=== PATIENT | male | born 1960 | race Caucasian/White ===

== ENCOUNTER 2017-06-29 00:19 | Emergency (ER) | payer OTHER, SELFPAY ==
[2017-06-29 00:20] VITALS: BP 141/77; PULSE 67; RESP 16; TEMP 36.5; O2SAT 98; BMI 37.3
--- NOTE | 2017-06-29 00:43 | EKG12_ITS ---
Test Reason : CP Blood Pressure : / mmHG Vent. Rate : 062 BPM Atrial Rate : 062 BPM P-R Int : 136 ms QRS Dur : 090 ms QT Int : 418 ms P-R-T Axes : -09 -08 -03 degrees QTc Int : 424 ms Normal sinus rhythm Normal ECG Confirmed by ANNA ROSAS, ARI ([id number]), international editorial producer ASHA GRULLON ([id number]) on 07/01/2017 2:12:22 PM Referred By: JUAN CARLOS Confirmed By:ARI CASTILLO MD
[2017-06-29 00:44] VITALS: O2SAT 98
[2017-06-29 00:49] LABS: Basophil# 0.02 X10^3/uL; Basophil% 0.4 % (0-1); Eosinophil# 0.19 X10^3/uL; Eosinophils% 3.6 % (0-5); Hematocrit 42.4 % (40-54); Lymphocyte % 49.7 % (19-41); Mean Corpuscular Hgb 29.3 pg (27.0-32.0); Mean Corpuscular Volume 88.7 fL (80-94); Mean Platelet Vol. 10.4 fl (6.2-12.0); Monocyte# 0.41 X10^3/uL; Monocyte% 7.8 % (0-10); Neutrophil # 1.99 X10^3/uL (2.7-7.7); Neutrophil % 38.1 % (47-70); Platelet Count 203 K/mm3 (150-450); RBC Distribution Width CV 13.2 % (11.6-14.6); RBC Distribution Width SD 42.3 fl (35.1-43.9); Red Blood Count 4.78 M/mm3 (4.6-6.2); White Blood Count 5.2 K/mm3 (4.4-11.0)
--- NOTE | 2017-06-29 00:49 | ED.DCSUM_ITS ---
History of Present Illness Chief Complaint: Chest Pain Informant: Patient Onset: Today, Hours - 1 Context: Sudden Onset Timing: Intermittent - x1, Lasts - 5 min Quality: ache Location: LUQ/epigastrium Current Severity: Gone Maximum Severity: Moderate Worsened by: nothing Relieved by: nothing Associated Symptoms: numbness both hands. sweaty/clammy. lightheaded. Narrative: Sx started after getting out of bed to use the bathroom. Hx of an AL 20 yrs ago. Has 3 stents. Last cardiac stress test awhile ago. ASA 324mg po en route by EMS. Took 3 Ex-Lax just prior to going to bed due to 3-day hx of constipation. Prior similar symptoms: No - Past Medical History (1) CAD (coronary artery disease) Status: Chronic Past Medical History - Allergies and Home Meds Allergies/Adverse Reactions: Allergies clarithromycin [From Biaxin] Allergy (Verified 06/29/17 00:20) Unknown Home Medications: Home Medications Medication Instructions Recorded Aspirin E.C. [Ecotrin] 81 mg PO DAILY@0800 06/29/17 Cholecalciferol (Vitamin D3) 2,000 unit PO DAILY 06/29/17 [Vitamin D3] Citalopram [Celexa] 20 mg PO DAILY 06/29/17 Clopidogrel Bisulfate [Clopidogrel] 75 mg PO DAILY 06/29/17 Cyanocobalamin [Vitamin B12] 1,000 mcg PO DAILY@0800 06/29/17 Esomeprazole Magnesium [Nexium 20 mg PO DAILY 06/29/17 24Hr] Fish Oil/Dha/Epa [Fish Oil 1,200 1 each PO DAILY 06/29/17 mg Fish Oil] Gemfibrozil [Lopid] 600 mg PO DAILY 06/29/17 Levaquin tablet 06/29/17 Metoprolol Tartrate [Lopressor 25 mg PO DAILY 06/29/17 (Beta Meli)] Oxycodone HCl/Acetaminophen 1 tab PO TID PRN 06/29/17 [Percocet 7.5-325 mg Tablet] Ramipril 1.25 mg PO DAILY 06/29/17 Primary Care Physician: Tre Pearson DO [Primary Care Provider] - 3-5 Days Doctors: George - Cardiology Lives: Alone - due to in SNF Smoking Status: Former smoker Drugs: None Review of Systems All systems negative except as indicated Cardiovascular: Reports: Chest pain. Denies: Palpitations Respiratory: Reports: Cough - recent, improving. Denies: Dyspnea Gastrointestinal: Reports: Abdominal pain, Constipation. Denies: Nausea, Vomiting Neurological: Reports: Numbness, - - lightheadedness w/o near-syncope Physical Exam Vital Signs/Narrative: Vital Signs Temp Pulse Resp BP Pulse Ox 06/29/17 00:20 97.7 F L 67 16 141/77 H 98 Inital Vital Signs reviewed: Yes General: Well nourished, Well developed Head: Normocephalic, Atraumatic Eyes: Perrl, EOMI ENT: Moist mucous membranes, No rhinorrhea Neck: Supple, Nontender Cardiovascular: Regular rate, Regular rhythm, No murmurs Respiratory: No distress, CTA bilaterally, Chest nontender Abdomen: Soft, Nontender, Nondistended, Normal bowel sounds Back: Nontender, Normal Inspection Extremities: Nontender - no calf tenderness., No edema Skin: Normal color, No rash Neurological: Alert, Oriented x3, Cranial nerves II-XII grossly intact, Normal Strength, Normal Sensation Psychological: Normal affect Diagnostic/Tx/Re-eval Chest X-Ray - ED: 2 View, Read by ED Physician, Read by Radiologist, No Acute Disease Impressions Chest X-Ray 06/29/17 00:50 IMPRESSION: Normal x-ray examination of the chest. Electronically Signed: Rosendo Hallman MD at 1:59 EDT Tel , Service support , 06/29/17 00:50 Chest PA and Lateral [RAD] Stat Laboratory Results 06/29/17 06/29/17 Range/Units 00:24 00:24 WBC 5.2 (4.4-11.0) K/mm3 RBC 4.78 (4.6-6.2) M/mm3 Hgb 14.0 (13.0-16.5) g/dl Hct 42.4 (40-54) % MCV 88.7 (80-94) fL MCH 29.3 (27.0-32.0) pg MCHC 33.0 (32-36) g/gl RDW 13.2 (11.6-14.6) % RDW Differential 42.3 (35.1-43.9) fl Plt Count 203 (150-450) K/mm3 MPV 10.4 (6.2-12.0) fl Immature Gran % (Auto) 0.400 (0.0-0.9) % Neut % (Auto) 38.1 L (47-70) % Lymph % (Auto) 49.7 H (19-41) % [place] % (Auto) 7.8 (0-10) % Eos % (Auto) 3.6 (0-5) % Baso % (Auto) 0.4 (0-1) % Absolute Neuts (auto) 2.0 (2.0-7.7) X10^3/uL Absolute Lymphs (auto) 2.60 (0.83-4.51) X10^3/ul Total Counted Not Reportable Sodium 143 (136-145) mmol/L Potassium 4.3 (3.5-5.1) mmol/L Chloride 106 (98-107) mmol/L Carbon Dioxide 31.0 (21.0-32.0) mmol/L Anion Gap 6 (5-15) BUN 34 H (7-18) mg/dL Creatinine 1.17 (0.70-1.30) mg/dL Estim Creat Clear Calc 71.06 ml/min Est GFR (MDRD) Af Amer 82 (>60) mL/min Est GFR (MDRD) Non-Af 68 (>60) mL/min BUN/Creatinine Ratio 29.1 H (10-20) RATIO Glucose 147 H (74-106) mg/dL Calcium 8.6 (8.5-10.1) mg/dL Troponin I < 0.02 (<0.06) ng/mL - Rhythm Strip Rhythm Strip: Sinus Rhythm Rate: 65 Ectopy: None - EKG 1 Interpretation: Sinus Rhythm - nml axis, intervals, T-waves, No Acute Injury Pattern Prior: Unchanged - 04/03/2007 - Medical Decision Making LANCE risk score - 2 (prior CAD, ASA use daily) HEART score - 3 (risk, age) EKG normal, labs initially normal with negative troponin. My suspicion is that this was not cardiogenic, especially since it only lasted for several minutes. He has had no symptoms in the ED and is resting comfortably. Plan is for a 3 hour repeat troponin, and discharge home with close outpatient follow-up if negative. Patient is comfortable with that plan. Repeat 3 hour troponin is negative as well. Patient meets low risk criteria for discharge home, he is comfortable with this plan and is still asymptomatic. Encouraged to follow-up with his doctor after the weekend. ED Disposition - Plan for ED Patient: Disposition: Home or Assisted Living Chief Complaint: Chest Pain Diagnosis: Chest pain, unspecified Instructions: ED Chest Pain Atypical Unkn Cause Referrals: Tre Pearson DO [Primary Care Provider] - 3-5 Days
--- NOTE | 2017-06-29 00:50 | RAD_ITS ---
STUDY: X-RAY CHEST REASON FOR EXAM: Male, 56 years old. Chest pain TECHNIQUE: Frontal and lateral views of the chest. COMPARISON: 04/02/2007 FINDINGS: The lungs are clear and expanded. There is no demonstrated pleural abnormality. Normal size heart. Normal mediastinum and jermaine. Normal visualized pulmonary arteries. Normal visualized aortic arch and descending thoracic aorta. Normal visualized thoracic spine. Normal visualized ribs, clavicles, and shoulders. There is no demonstrated abnormality of the visualized soft tissue structures of the upper abdomen. RAD/Chest PA and Lateral IMPRESSION: Normal x-ray examination of the chest. Electronically Signed: Rosendo Hallman MD at 1:59 EDT Tel , Service support ,
[2017-06-29 00:54] LABS: POSITIVE COUNT NO; POSITIVE DIFFERENTIAL NO; POSITIVE MORPHOLOGY NO
[2017-06-29 01:02] LABS: Anion Gap 6 (5-15); BUN 34 mg/dL (7-18); BUN/Creat Ratio 29.1 RATIO (10-20); Calcium,Total 8.6 mg/dL (8.5-10.1); Chloride 106 mmol/L (98-107); Creatinine, Serum 1.17 mg/dL (0.70-1.30); EST Glomerular Filtration Rate 68 mL/min (>60); Est Glom Filt Rate - Afr Amer 82 mL/min (>60); Estimated Creatinine Clearance 71.06 ml/min; Glucose 147 mg/dL (74-106); Potassium 4.3 mmol/L (3.5-5.1); Sodium Level 143 mmol/L (136-145)
[2017-06-29] MEDS: 0.9% Normal Saline 1,000 ML 15 ML IV (01:04)
[2017-06-29 01:06] VITALS: BP 140/86; PULSE 59; RESP 17; O2SAT 98
[2017-06-29 02:23] VITALS: BP 131/78; PULSE 58; RESP 17; O2SAT 97
[2017-06-29 04:06] VITALS: BP 131/78; PULSE 59; RESP 15; O2SAT 97
[2017-06-29 04:14] VITALS: BP 137/78; PULSE 60; RESP 18; O2SAT 98
== END 2017-06-29 04:15 | disposition home or self-care (01) ==
PROVIDERS: Emergency Provider Emergency Medicine; Family Provider Family Medicine; PCP Family Medicine
DX: R07.9 Chest pain, unspecified (principal); I25.2 Old myocardial infarction; I25.10 Atherosclerotic heart disease of native coronary artery without angina pectoris; Z95.5 Presence of coronary angioplasty implant and graft; Z87.891 Personal history of nicotine dependence; Z79.82 Long term (current) use of aspirin; Z79.891 Long term (current) use of opiate analgesic; Z79.899 Other long term (current) drug therapy
CPT/HCPCS: 71046; 80048; 84484; 85025; 93005; 99284; A4216

== ENCOUNTER → 2017-07-05 08:32 | Outpatient (CLI) | payer OTHER, SELFPAY ==
--- NOTE | 2017-07-05 08:34 | RAD_ITS ---
STUDY: AIR-CONTRAST UPPER GI SERIES. REASON FOR EXAM: Male, 56 years old. History of gastroesophageal reflux. FLUOROSCOPY TIME (if supplied): (0:45) minutes/seconds TECHNIQUE: The patient ingested barium. Multiple images of esophagus, stomach and duodenum were obtained. COMPARISON: None. FINDINGS: There is no evidence of esophageal obstruction. Small sliding hiatal hernia with gastroesophageal reflux. The remainder of the stomach and duodenum is unremarkable. IMPRESSION: Small sliding hiatal hernia with gastroesophageal reflux. Electronically Signed: Bucky Valenzuela MD at 15:21 EDT Tel [phone], Service support , STUDY: X-RAY - ESOPHAGUS (BARIUM SWALLOW) WITH FLUOROSCOPY REASON FOR EXAM: Male, 56 years old. Gastroesophageal reflux disease. TECHNIQUE: 16 view(s) of the esophagus were obtained following swallowing of barium. FLUOROSCOPY TIME (if supplied): (0:45) minutes/seconds COMPARISON: None. FINDINGS: There is no demonstrated esophageal foreign body. There is no demonstrated stricture or mucosal abnormality. There is a small hiatal hernia of the fundus of the stomach. There is evidence of gastroesophageal reflux. Normal visualized aortic arch and descending thoracic aorta. Normal visualized pulmonary parenchyma. Normal visualized osseous structures of the thorax. RAD/Upper GI w/BA Swallow IMPRESSION: Small sliding hiatal hernia with gastroesophageal reflux. Electronically Signed: Bucky Valenzuela MD at 15:22 EDT Tel [phone], Service support ,
== END ==
PROVIDERS: Family Provider Family Medicine; PCP Family Medicine; Visit Provider Surgery
DX: K21.9 Gastro-esophageal reflux disease without esophagitis (principal)
CPT/HCPCS: 74246

== ENCOUNTER 2017-07-19 09:11 | Day surgery (SDC) | payer OTHER, SELFPAY ==
--- NOTE | 2017-07-19 | IMM_PTH ---
PATIENT: TALYA SANZ LOC: [facility] U#:[id number] AGE/SX: 56/M ROOM: RE07/19/[address]: Dr. Chong Casiano MD : 1960 BED: DIS: 07/19/2017 SPEC #: [id number] RECD: 07/23/17 11:21 STATUS: JESSICA AMANDA #: [id number] MANUEL: 07/19/17 00:[address]: Chong Casiano DEPT: IMMUNOHISTOCHEMISTRY RECD BY: Manuela Jacinto ENTERED: 07/23/17 11:21 SP TYPE: IMMUNO OTHR DR: Dr. Tre Pearson DO Tissues: B - Stomach, NOS Procedures: H Pylori (initial) PHYSICIAN & INSTITUTION [place] [id number] SPECIMEN INFORMATION: Tissue Source: B ? Antrum biopsy Clinical Info: Screening, GERD, esophagitis Specimen Number: [id number] CPT code: 22582 METHODOLOGY: Deparaffinized sections of prefer/formalin-fixed tissue or PAP/DQ stained slides are incubated with monoclonal/polyclonal antibodies/oligonucleotide probes. Localization is made via biotin free immunoperoxidase method. Appropriate controls are performed and reacted as expected. Results on target cell population are indicated in the following table: RESULTS: ANTIBODY / CLONE RESULT Block B H Pylori (polyclonal) negative These tests were developed and their performance characteristics determined by [facility]. They may not have been cleared or approved by the U.S. Food and Drug Administration. The FDA has determined that such clearance or approval is not necessary. INTERPRETATION: B. Antrum, biopsy: Negative for Helicobacter pylori organisms. SJ:serge 07/24/17
--- NOTE | 2017-07-19 | COLBX_PTH ---
PATIENT: TALYA SANZ LOC: [facility] U#:[id number] AGE/SX: 56/M ROOM: RE07/19/[address]: Dr. Chong Casiano MD : 1960 BED: DIS: 07/19/2017 SPEC #: [id number] RECD: 07/19/17 13:25 STATUS: JESSICA AMANDA #: [id number] MANUEL: 07/19/17 00:[address]: Chong Casiano DEPT: SURGICAL PATHOLOGY RECD BY: Juvenal Rincon ENTERED: 07/19/17 13:26 SP TYPE: COLON BX OTHR DR: Dr. Tre Pearson DO Tissues: A - Sigmoid colon biopsy B - Gastric mucous membrane C - Gastric mucous membrane D - Esophageal mucous membrane Procedures: Special Stain Group II Surgery Specimen Level IV Alcian Blue/PAS (control) HEADER OPERATION: Colonoscopy with polypectomy; EGD with biopsies PRE-OP DIAGNOSIS: Screening; GERD, esophagitis TISSUE SUBMITTED: A - Distal sigmoid polyp, B ? Antrum biopsy for H. pylori and path, C ? Fundic polyp, D ? Distal esophagus biopsy MICROSCOPIC DIAGNOSIS A. Distal sigmoid polyp, biopsy: Hyperplastic polyp. B. Antrum, biopsy: Mild gastritis. See microscopic description and comment. C. Fundic polyp, biopsy: Consistent with fundic gland polyp. D. Distal esophagus, biopsy: Fragments of gastroesophageal mucosa with intestinal metaplasia (goblet cell metaplasia) consistent with Arreola?s esophagus. Focal ulceration, acute and chronic inflammation. Negative for dysplasia. See comment. SJ:serge 07/23/17 COMMENT B. The results of immunohistochemistry for Helicobacter pylori will be reported separately ([id number]). D. Alcian blue/PAS stain with matched control is used in the evaluation of the specimen. MICROSCOPIC DESCRIPTION Slides are reviewed. B. The specimen shows fragments of gastric mucosa with chronic inflammatory cell infiltrates in the lamina propria consisting of lymphocytes and plasma cells, consistent with mild chronic gastritis. GROSS DESCRIPTION A - Received in fixative is one container labeled with the patient's name and designated distal sigmoid polyp. The specimen consists of a piece of deleon-pink polyp measuring 0.6 x 0.5 x 0.2 cm. The specimen is totally submitted in one cassette. B - Received in fixative is one container labeled with the patient's name and designated antrum biopsy for H. pylori and path. The specimen consists of one irregular fragment of light deleon soft tissue that measures 0.5 x 0.2 x 0.1 cm. The specimen is totally submitted in one cassette. C - Received in fixative is one container labeled with the patient's name and designated fundic polyp biopsy. The specimen consists of one irregular fragment of light deleon soft tissue that measures 0.2 x 0.2 x 0.1 cm. The specimen is totally submitted in one cassette. D - Received in fixative is one container labeled with the patient's name and designated distal esophagus biopsy. The specimen consists of multiple irregular fragments of light deleon soft tissue that in aggregate measure 2 x 0.8 x 0.1 cm. The specimen is totally submitted in one cassette. / SJ:rg 07/19/17 TC:2 [facility]: [id number] x4, [id number]
[2017-07-19 09:34] VITALS: BP 136/81; PULSE 68; RESP 18; TEMP 36.8; O2SAT 99; BMI 37.0
--- NOTE | 2017-07-19 11:14 | PCM.OPRPT ---
Problem List (1) Screening for intestinal cancer Status: Acute (2) GERD with esophagitis Status: Acute Report of Operation Date of Procedure: 07/19/17 Pre-Operative Diagnosis: Epigastric pain, gastroesophageal reflux disease, need for screening colonoscopy Post-Operative Diagnosis: Mild diffuse gastritis, gastric fundic polyps, small hiatal hernia with 4 cm long segment of Arreola's esophagus. Scattered pancolonic diverticulosis with sigmoid diverticulosis. Sessile polyp of the distal sigmoid. Grade 2 internal hemorrhoids Surgery/Procedure Performed:: Esophagogastroduodenoscopy with cold forcep antral biopsy and gastric polyp biopsies and distal esophageal biopsies. Colonoscopy with hot snare distal sigmoid polypectomy Description of Surgical Findings:: Timeout and informed consent was obtained. 56-year-old gentleman was taken to the screw suite. His oropharynx anesthetized with Topex. He was placed in a left loud skin position. Monitored anesthesia care was provided. Under direct visitation gastroscope inserted and soft ligament. The proximal mid distal esophagus noted. The EG junction at the site of Arreola's was approximately at 34 cm with the diaphragm at approximately 38 cm making a 4 cm length of Arreola's. Scope was advanced in the stomach the antrum had diffuse areas of erythema consistent with gastritis scope was advanced through the pylorus the first and second portion of the duodenum inspected this was not remarkable scope was withdrawn back in the stomach retroflexed the EG junction and cardia inspected a hiatal hernia noted. There is no active bleeding. The scope was placed back in antegrade viewing position. Antral biopsy was obtained. There were scattered gastric fundic polyps a public health representative sample with cold forceps was obtained as well. Excess fluid and air was aspirated free. The scope was withdrawn to the distal esophagus where multiple cold forcep biopsies are obtained of the distal esophagus at the site of clinical Arreola's over a 4 cm length. Hemostasis was intact. Excess fluid and air was aspirated free. The scope was withdrawn without additional abnormality. Digital rectal exam performed. Normal anal tone. 2+ smooth prostate. Flexible colonoscope inserted the rectum advanced readily throughout the colon. The cecum ileocecal valve area was nicely achieved. Bowel prep was good. The scope was carefully withdrawn from the ascending transverse descending and sigmoid colon. Minimal scattered diverticulosis was identified. More significant diverticulosis of the sigmoid colon noted. There is a sessile 1.2 cm polyp of the distal sigmoid colon at approximately 20 cm. Photograph was obtained. A hot snare was used to resect and retrieved. A hemostatic clip was placed.. The scope withdrawn to the rectum and retroflexed. The anorectal verge inspected. Impression Gastritis, gastric fundic polyps, small to moderate hiatal hernia with clinical findings consistent with a 4 cm length of Arreola's esophagus. These findings however do not seem to correlate with the severity of the patient's epigastric pain particularly as he is on a proton pump inhibitor. Colonoscopy demonstrates pancolonic scattered diverticulosis with more concentrated sigmoid diverticulosis. Sessile benign-appearing polyp in the distal sigmoid with pathology pending and hemostatic clip placed. The patient will be notified of pathology results as they become available. Previous colonoscopy was 12 years ago. Pending the pathology recommendations will be for follow-up colonoscopy likely in 3-5 years. It is not clear to me that the etiology to the patient's epigastric pain has been determined on this examination. Pending the pathology if the patient has persistent symptoms might consider CT scan of the abdomen and pelvis. For the patient's reflux and Arreola's I will again encourage him to pursue a weight loss program to potentially allow for a more aggressive surgical treatment option in the future name be repairing his hiatal hernia and performing a surgical reflux procedure. Cc: Dr. Tre Pearson Upper endoscopy started at 1047. It was completed at 1056. The colonoscopy started at 1059. The cecum was reached at 1102.2. The procedure was completed at 1109. Chong Casiano M.D., F.A.C.S. Type of Anesthesia:: MAC
[2017-07-19 11:15] VITALS: BP 111/74; BP 136/81; PULSE 75; RESP 14; TEMP 36.4; O2SAT 93
[2017-07-19 11:20] VITALS: BP 105/64; BP 136/81; PULSE 67; RESP 16; O2SAT 93
[2017-07-19 11:26] VITALS: BP 134/84; BP 136/81; PULSE 64; RESP 16; O2SAT 96
[2017-07-19 11:30] VITALS: BP 123/86; BP 136/81; PULSE 61; RESP 16; TEMP 36.8; O2SAT 95
[2017-07-19 12:08] VITALS: BP 136/81
== END 2017-07-19 12:14 | disposition home or self-care (01) ==
LOC: EN 09:11 → AC 09:12
PROVIDERS: Family Provider Family Medicine; PCP Family Medicine; Visit Provider Surgery
PROC: 0DJD8ZZ Inspection of Lower Intestinal Tract, Via Natural or Artificial Opening Endoscopic (ICD-10-PCS; CPT 45378; principal; 2017-07-19 10:10)
DX: Z12.11 Encounter for screening for malignant neoplasm of colon (principal); K21.0 Gastro-esophageal reflux disease with esophagitis; K29.70 Gastritis, unspecified, without bleeding; K31.7 Polyp of stomach and duodenum; K63.5 Polyp of colon; K22.70 Barrett's esophagus without dysplasia; K44.9 Diaphragmatic hernia without obstruction or gangrene; K57.30 Diverticulosis of large intestine without perforation or abscess without bleeding; K64.1 Second degree hemorrhoids; F41.9 Anxiety disorder, unspecified; F32.9 Major depressive disorder, single episode, unspecified; I25.10 Atherosclerotic heart disease of native coronary artery without angina pectoris; I25.2 Old myocardial infarction; M19.90 Unspecified osteoarthritis, unspecified site; E78.00 Pure hypercholesterolemia, unspecified; G47.30 Sleep apnea, unspecified; E66.9 Obesity, unspecified; Z68.38 Body mass index [BMI] 38.0-38.9, adult; Z87.891 Personal history of nicotine dependence; Z79.82 Long term (current) use of aspirin; Z79.02 Long term (current) use of antithrombotics/antiplatelets; Z79.891 Long term (current) use of opiate analgesic; Z79.899 Other long term (current) drug therapy; Z95.5 Presence of coronary angioplasty implant and graft
CPT/HCPCS: 43239; 45380; 88305; 88313; 88342; J7120

== ENCOUNTER → 2017-10-23 07:06 | Outpatient (CLI) | payer OTHER, SELFPAY ==
[2017-10-23 10:46] LABS: AST(SGOT) 27 U/L (15-37); Alanine Aminotransfer ALT/SGPT 49 U/L (16-61); Alkaline Phosphatase 74 U/L (45-117); Bilirubin, Direct 0.05 mg/dL (0.00-0.30); Cholesterol 181 mg/dL (200); Globulin 3.3 g/dL (2.2-4.2); High Density Lipoprotein 25 mg/dL; Protein, Total 7.3 g/dL (6.4-8.2); Triglycerides 351 mg/dL; Very Low Density Lipoprotein 70 mg/dL (5-40)
== END ==
PROVIDERS: Family Provider Family Medicine; PCP Family Medicine; Visit Provider Physician Assistant Medical
DX: E78.5 Hyperlipidemia, unspecified (principal); Z79.899 Other long term (current) drug therapy
CPT/HCPCS: 36415; 80061; 80076

== ENCOUNTER → 2017-11-13 06:19 | Outpatient (CLI) | payer OTHER, SELFPAY ==
--- NOTE | 2017-11-13 10:37 | STRESSREP ---
Stress Test Report Exercise myocardial perfusion stress test. 57-year-old man with a history of coronary artery disease status post angioplasty and stenting of the first obtuse marginal branch and the left anterior descending artery. Stress protocol: Resting EKG demonstrates normal sinus rhythm with a rate of 67 beats minute normal intervals and noted resting blood pressures 142/98 mmHg. The patient exercised according to regular Haja protocol for total duration of 6 minutes the maximum heart rate attained was 146 bpm which was 90% of maximum predicted heart rate the maximum workload was 7 metabolic equivalents. Patient maintained sinus rhythm throughout the recording with occasional premature ventricular complexes. At rest there were no ST or T-wave changes noted suggest ischemia peak exercise upsloping ST changes only were noted with no meet the criteria for ischemia. The resting blood pressure is 142/98 with a peak blood pressure 180/100 mmHg pressure product was 22,600. No chest pain was noted the patient was noted to be short of breath and had hip discomfort. Myocardial perfusion protocol. 14.8 mCi of technetium 99m sestamibi was injected at rest. The patient exercised according to regular Haja protocol for 6 minutes attaining 7 metastases at peak exercise 44.6 mCi of technetium 99m sestamibi was injected stress images were obtained stress and rest images were reconstructed and compared in the short axis vertical long horizontal long axis. Fusion SPECT analysis. Review of the images demonstrate normal uptake of tracer noted in the anterior wall inferior wall and septum. There is a small portion of the apex on the stress images with mild perfusion defect as well as a medium size zone noted in the mid lateral wall. The resting images demonstrate mild improvement in the apex as well as a small defect noted in the mid lateral wall. The above is suggestive of ischemia in the mid lateral distribution and cannot exclude small apical ischemic zone. A previous mid lateral infarct is also suggested. Gated SPECT analysis: The gated ejection fraction is 56%. Conclusion: Exercise myocardial perfusion stress test with evidence of apical and mid lateral ischemia at a moderate workload. Mild functional aerobic impairment. Preserved ejection fraction.
== END ==
PROVIDERS: Family Provider Family Medicine; PCP Family Medicine; Visit Provider Internal Medicine Cardiovascular Disease
DX: I25.10 Atherosclerotic heart disease of native coronary artery without angina pectoris (principal); Z95.5 Presence of coronary angioplasty implant and graft
CPT/HCPCS: 78452; 93017; A9500; A4216

== ENCOUNTER → 2017-11-14 14:45 | Outpatient (CLI) | payer OTHER, SELFPAY ==
[2017-11-14 15:28] LABS: Absolute Lymphocyte Count 1.55 X10^3/ul (0.83-4.51); Absolute Neutrophil Count 2.8 X10^3/uL (2.0-7.7); Basophil# 0.02 X10^3/uL; Basophil% 0.4 % (0-1); Eosinophil# 0.07 X10^3/uL; Eosinophils% 1.4 % (0-5); Hematocrit 41.8 % (40-54); Lymphocyte # 1.55 X10^3/ul (4.0); Mean Corp Hgb Conc 33.5 g/gl (32-36); Mean Corpuscular Hgb 29.7 pg (27.0-32.0); Mean Corpuscular Volume 88.7 fL (80-94); Mean Platelet Vol. 10.3 fl (6.2-12.0); Monocyte# 0.44 X10^3/uL; Monocyte% 9.1 % (0-10); Neutrophil # 2.77 X10^3/uL (2.7-7.7); Neutrophil % 57.1 % (47-70); Platelet Count 208 K/mm3 (150-450); RBC Distribution Width CV 12.9 % (11.6-14.6); RBC Distribution Width SD 41.5 fl (35.1-43.9); Red Blood Count 4.71 M/mm3 (4.6-6.2); White Blood Count 4.9 K/mm3 (4.4-11.0)
[2017-11-14 15:31] LABS: POSITIVE COUNT NO; POSITIVE DIFFERENTIAL NO; POSITIVE MORPHOLOGY NO
[2017-11-14 15:44] LABS: International Normalized Ratio 0.9; Prothrombin Time (Protime)PT. 12.3 SECONDS (11.7-14.9)
[2017-11-14 15:45] LABS: Partial Thromboplast Time 26.3 Seconds (24.1-36.2)
[2017-11-14 16:01] LABS: Anion Gap 10 (5-15); BUN 31 mg/dL (7-18); Calcium,Total 8.8 mg/dL (8.5-10.1); Chloride 106 mmol/L (98-107); Creatinine, Serum 1.15 mg/dL (0.70-1.30); EST Glomerular Filtration Rate 69 mL/min (>60); Est Glom Filt Rate - Afr Amer 84 mL/min (>60); Glucose 129 mg/dL (74-106); Potassium 4.1 mmol/L (3.5-5.1); Sodium Level 141 mmol/L (136-145)
== END ==
PROVIDERS: Family Provider Family Medicine; PCP Family Medicine; Visit Provider Internal Medicine Cardiovascular Disease
DX: E78.5 Hyperlipidemia, unspecified (principal); I10 Essential (primary) hypertension; I25.10 Atherosclerotic heart disease of native coronary artery without angina pectoris; R94.39 Abnormal result of other cardiovascular function study; Z95.5 Presence of coronary angioplasty implant and graft
CPT/HCPCS: 36415; 80048; 85025; 85610; 85730

== ENCOUNTER 2017-11-21 07:01 | Day surgery (SDC) | payer OTHER, SELFPAY ==
[2017-11-20 08:30] VITALS: BMI 39.7
--- NOTE | 2017-11-21 08:40 | CL.D_ITS ---
Patient Name: TALYA SANZ Study Date: 11/21/2017 Performing: Ej Vazquez MD Ht: 70.07 inches 178 cm : 1960 Wt: 277.78 lbs 126 kg Age: 57 Gender: male BSA: 2.4 PROCEDURE(S) PERFORMED DQ35-LOM/COR/LV CLINICAL PROFILE AND INDICATIONS Indications: Suspected CAD Heart Failure: None Stress/Imaging Stress Test w/SPECT MPI: Yes Result: Positive Intermediate RiskStress Test with SP ECT MPI: Positive Intermediate Risk CONCLUSIONS Coronary artery disease noted with previously placed LAD stents patent with mild to moderate in-stent stenosis, and an ostial obtuse marginal branch stenosis noted jailed by stent previously noted. RECOMMENDATIONS We will continue medical therapy for now and aggressive blood pressure treatment and if fails or symp tomatic would bring back to treat LAD. DESCRIPTION OF PROCEDURE The patient arrived to the procedure lab. The risks and benefits of the procedure as well as a full d escription of our services here and current unavailability of surgical backup were fully explained to the patient and/or their significant other prior to the catheterization. The Timeout was completed, verifying the correct patient and procedure. The patient's procedural site was prepped and draped in the usual fashion. Local anesthetic was given subcutaneously to right groin region with Lidocaine 2%. Using a modified Seldinger technique, arterial access was obtained via the right femoral artery, a 5 Fr sheath was inserted. Left Coronary Artery selective angiography was performed in multiple views u sing a 5 Fr. JL4 catheter. Right Coronary Artery selective angiography was then performed in multiple views using a 5 Fr. 3DRC (Levi) catheter. Left Ventriculography was performed in WAGNER projection using a 5 Fr. Pigtail catheter. LV to AO pullback pressures were then recorded. Right iliac selective angiography was then performed in single view to check for possible closure device usage.The arteria l sheath was pulled and a Mynx closure device was deployed for hemostasis CORONARY ANGIOGRAPHY DOMINANCE: Left Dominant LEFT HEART ASSESSMENT Left Ventricular Ejection Fraction: by LV Gram 55 % Normal Left Ventricular systolic function LEFT MAIN: Angiographically normal LEFT ANTERIOR DECENDING ARTERY: PROX LAD: Previously placed stent is patent MID LAD: Previously placed stent has an instent 40 % restenosis DISTAL LAD: Mild luminal irregularities CIRCUMFLEX ARTERY: MID CIRC: Previously placed stent is patent OM 1: Ostial - 70 % Stenosis, Ostial - Has a stent going across the lesion. RIGHT CORONARY ARTERY: Non-obstructive COMPLICATIONS No Complications PROCEDURE MEDICATIONS Versed 1 mg IV Versed 1 mg IV Oxygen: 2 L/min via nasal cannula SUMMARY OF HEMODYNAMIC DATA Time AIR REST ECG 07:29:09 AO 137/85 (106) SA 08:06:53 LV 142/15, 32 08:16:29 LV 135/13, 18 08:16:35 LV 147/4, 25 08:17:52 LV 142/4, 25 08:17:59 LVp 138/3, 23 08:18:04 AOp 144/79 (104) 08:18:09 Signed By Ej Vazquez MD On 11/21/2017 08:39:15 Ej Vazquez MD
== END 2017-11-21 11:10 | disposition home or self-care (01) ==
LOC: CLSP 07:03
PROVIDERS: Family Provider Family Medicine; PCP Family Medicine; Referring Provider Internal Medicine Cardiovascular Disease; Visit Provider Internal Medicine Cardiovascular Disease
DX: I25.10 Atherosclerotic heart disease of native coronary artery without angina pectoris (principal); I10 Essential (primary) hypertension; Z95.1 Presence of aortocoronary bypass graft; Z79.899 Other long term (current) drug therapy; Z79.82 Long term (current) use of aspirin; E78.00 Pure hypercholesterolemia, unspecified; K21.0 Gastro-esophageal reflux disease with esophagitis; F41.9 Anxiety disorder, unspecified; F32.9 Major depressive disorder, single episode, unspecified; I25.2 Old myocardial infarction; M19.90 Unspecified osteoarthritis, unspecified site; G47.30 Sleep apnea, unspecified; Z87.891 Personal history of nicotine dependence
CPT/HCPCS: 93458; 99152; C1760; J7040; C1769; Q9967

== ENCOUNTER 2018-04-17 17:53 | Emergency (ER) | payer OTHER, SELFPAY ==
[2018-04-17 17:53] VITALS: BP 134/84; PULSE 78; RESP 14; TEMP 36.4; O2SAT 95; BMI 37.7
[2018-04-17 20:14] VITALS: BP 131/78; PULSE 67; RESP 18; O2SAT 96
--- NOTE | 2018-04-17 20:15 | EKG12_ITS ---
Test Reason : Blood Pressure : / mmHG Vent. Rate : 070 BPM Atrial Rate : 070 BPM P-R Int : 130 ms QRS Dur : 092 ms QT Int : 398 ms P-R-T Axes : -05 -04 008 degrees QTc Int : 429 ms Normal sinus rhythm Normal ECG Confirmed by JASMIN ROSAS, TERESA ([id number]), film and video editor NEISHA EMANUEL ([id number]) on 04/21/2018 5:14:27 PM Referred By: VANDANA Confirmed By:TERESA CASTELLANOS MD
--- NOTE | 2018-04-17 20:15 | RAD_ITS ---
STUDY: X-RAY CHEST REASON FOR EXAM: Male, 57 years old. Hypertension TECHNIQUE: PA and lateral COMPARISON: Jun 29 2017 FINDINGS: There is mild prominence of interstitial markings in the lower lobes.. No focal infiltration.. There is no demonstrated pleural abnormality. Normal size heart. Normal mediastinum and jermaine. Normal visualized pulmonary arteries. Normal visualized aortic arch and descending thoracic aorta. Dorsal spine demonstrates mild spondylosis. Normal visualized ribs, clavicles, and shoulders. There is no demonstrated abnormality of the visualized soft tissue structures of the upper abdomen. No significant change since prior study RAD/Chest PA and Lateral IMPRESSION: Mild chronic bibasilar interstitial changes. No acute disease Electronically Signed: Chris Leon MD at 22:03 EST , Service support ,
[2018-04-17 20:57] LABS: Bacteria 0 SEEN /hpf (None Seen); Mucous, Urine 0 SEEN /hpf (<or=2+); Red Blood Cells-Urine 0 SEEN /hpf (0-5); Squamous Epithelial Cells - UA 0 SEEN /hpf (0-5); White Blood Cells 0 SEEN /hpf (0-5)
[2018-04-17 20:59] LABS: Absolute Lymphocyte Count 2.04 X10^3/ul (0.83-4.51); Absolute Neutrophil Count 2.5 X10^3/uL (2.0-7.7); Basophil# 0.02 X10^3/uL; Basophil% 0.4 % (0-1); Eosinophil# 0.08 X10^3/uL; Eosinophils% 1.6 % (0-5); Hematocrit 42.2 % (40-54); Hemoglobin 14.1 g/dl (13.0-16.5); Lymphocyte # 2.04 X10^3/ul (4.0); Lymphocyte % 40.9 % (19-41); Mean Corp Hgb Conc 33.4 g/gl (32-36); Mean Corpuscular Hgb 29.6 pg (27.0-32.0); Mean Corpuscular Volume 88.7 fL (80-94); Mean Platelet Vol. 10.5 fl (6.2-12.0); Monocyte# 0.39 X10^3/uL; Monocyte% 7.8 % (0-10); Neutrophil # 2.45 X10^3/uL (2.7-7.7); Neutrophil % 49.1 % (47-70); Platelet Count 204 K/mm3 (150-450); RBC Distribution Width CV 13.2 % (11.6-14.6); RBC Distribution Width SD 42.4 fl (35.1-43.9); Red Blood Count 4.76 M/mm3 (4.6-6.2)
[2018-04-17 21:00] LABS: Color, Urine Yellow (Yellow); Glucose, Dipstick Normal (Normal); Ketone-Dipstick Negative (Negative); Leukocyte Esterase-Dipstick Negative /ul (Negative); Nitrite-Dipstick Negative (Negative); Occult Blood-Urine Negative /ul (Negative); Protein-Dipstick Negative (Negative); Urine Bilirubin Dipstick Negative (Negative); Urine Clarity Clear (Clear); Urine Urobilinogen Normal (Normal)
[2018-04-17 21:01] LABS: POSITIVE COUNT NO; POSITIVE DIFFERENTIAL NO; POSITIVE MORPHOLOGY NO
[2018-04-17 21:15] LABS: Anion Gap 9 (5-15); BUN 33 mg/dL (7-18); BUN/Creat Ratio 28.2 RATIO (10-20); Calcium,Total 8.6 mg/dL (8.5-10.1); Chloride 105 mmol/L (98-107); Creatinine, Serum 1.17 mg/dL (0.70-1.30); EST Glomerular Filtration Rate 68 mL/min (>60); Est Glom Filt Rate - Afr Amer 82 mL/min (>60); Estimated Creatinine Clearance 70.19 ml/min; Glucose 141 mg/dL (74-106); Sodium Level 142 mmol/L (136-145)
[2018-04-17 22:35] VITALS: BP 143/91; PULSE 74; RESP 19; O2SAT 96
--- NOTE | 2018-04-17 22:43 | ED.DCSUM_ITS ---
- ER Visit Summary Date of Service: 04/17/18 Chief Complaint: Hypertension History of Present Illness: The patient is a 57 M who presents with elevated blood pressure that has been elevated for the past week. Patient states his blood pressure is 180/115 at home. Patient states he took his blood pressure at 3 PM today and was 200/105. Patient states that he took [id number] prostate medication which he believes caused his blood pressure to go up. Patient also states he thought he might have an infection so he took 3 days worth of Zithromax. Patient states this has not improved his blood pressure. Physical Examination: Vital signs are stable. Patient is afebrile. Patient is in no acute distress. Oral mucosa is pink and moist. Neck is supple. Trachea is midline. There is no JVD noted. Heart was regular rate and rhythm. Lungs are clear and equal bilateral. Abdomen is soft. Bowel sounds are normal. There is no tenderness. There is no guarding noted. Skin is warm dry. Cranial nerves II through XII are intact. There are no focal motor or sensory deficits noted. The remaining physical exam is within normal limits. Test Results: EKG showed normal sinus rhythm with a rate of 70. There are no acute ST or T wave changes. CBC, basic metabolic profile, troponin, and urinalysis were obtained were all normal. Emergency Department Course and Treatment: Patient's blood pressure remained stable here in the emergency department. Patient was directed to follow-up with his primary care physician in 7-10 days. Patient was instructed to keep a log of his blood pressures. Patient understood and was agreeable with the plan. All questions were answered. Disposition: Discharge home Impression: Hypertension This note was generated with [employer] dictation software. It may contain incorrect words, spelling, and punctuation that were not noted in review of the chart prior to signing ED Disposition - Plan for ED Patient: Disposition: Home or Assisted Living Diagnosis: Hypertension Instructions: ED HTN Established Referrals: Tre Pearson DO [Primary Care Provider] -
[2018-04-17 22:57] VITALS: BP 147/94; PULSE 65; RESP 18; O2SAT 98
== END 2018-04-17 22:58 | disposition home or self-care (01) ==
PROVIDERS: Emergency Provider Emergency Medicine; Family Provider Family Medicine; PCP Family Medicine
DX: I10 Essential (primary) hypertension (principal); K21.9 Gastro-esophageal reflux disease without esophagitis; F41.9 Anxiety disorder, unspecified; F32.9 Major depressive disorder, single episode, unspecified; Z79.82 Long term (current) use of aspirin; Z79.891 Long term (current) use of opiate analgesic; Z79.899 Other long term (current) drug therapy
CPT/HCPCS: 71046; 80048; 81001; 84484; 85025; 93005; 99284

== ENCOUNTER → 2018-11-12 | Outpatient (CLI) | payer OTHER, SELFPAY ==
[2018-11-12 09:15] LABS: AST(SGOT) 27 U/L (15-37); Alanine Aminotransfer ALT/SGPT 40 U/L (16-61); Alkaline Phosphatase 71 U/L (45-117); Bilirubin, Direct 0.09 mg/dL (0.00-0.30); Cholesterol 187 mg/dL (200); Globulin 3.1 g/dL (2.2-4.2); High Density Lipoprotein 26 mg/dL; Protein, Total 7.1 g/dL (6.4-8.2); Triglycerides 286 mg/dL; Very Low Density Lipoprotein 57 mg/dL (5-40)
== END | disposition home or self-care (01) ==
LOC: LAB 07:18
PROVIDERS: Family Provider Family Medicine; PCP Family Medicine; Referring Provider Internal Medicine Cardiovascular Disease; Visit Provider Internal Medicine Cardiovascular Disease
DX: E78.5 Hyperlipidemia, unspecified (principal); I10 Essential (primary) hypertension; I25.10 Atherosclerotic heart disease of native coronary artery without angina pectoris; K21.0 Gastro-esophageal reflux disease with esophagitis; Z95.5 Presence of coronary angioplasty implant and graft
CPT/HCPCS: 36415; 80061; 80076

== ENCOUNTER 2019-07-24 10:37 | Emergency (ER) | payer OTHER, SELFPAY ==
[2019-01-06 16:14] VITALS: BMI 38.0
[2019-07-24 10:39] VITALS: BP 177/86; PULSE 74; RESP 18; TEMP 36.4; O2SAT 96; BMI 37.3
--- NOTE | 2019-07-24 11:03 | CT_ITS ---
STUDY: CT ABDOMEN AND PELVIS WITHOUT CONTRAST REASON FOR EXAM: Male, 58 years old. ABD PAIN, NAUSEA, TROUBLE URINATING, CHILLS/FATIGUE/SWEATS X 2 MONTHS RADIATION DOSAGE (If Supplied By Facility): CTDIvol = ( 22.41 ) mGy, DLP = ( 1125.49 ) mGycm TECHNIQUE: Transaxial images were obtained from the dome of the diaphragm to the symphysis pubis without oral contrast, and without intravenous contrast. Sagittal and coronal images were reconstructed. Individualized dose optimization techniques were used for this CT. COMPARISON: None. FINDINGS: Small calcified granuloma in the left lower lobe. The visualized portions of the heart are within normal limits. There is decreased attenuation of the liver consistent with steatosis. Normal gallbladder and extrahepatic biliary system. Normal spleen. Normal pancreas. Normal bilateral adrenal glands. Normal right kidney. Normal left kidney. There is a small hiatal hernia. Normal small intestine. There are multiple colonic diverticula consistent with diverticulosis. The appendix is visualized and appears normal. There is diffuse atherosclerotic calcification of the abdominal aorta, without a demonstrated aneurysm. Normal inferior vena cava. Normal retroperitoneum. There is a 5 cm x 4.2 cm mass in the bladder. The bladder is contracted. A repeat examination with IV contrast and delayed imaging to assess the bladder is recommended. There is a small umbilical hernia containing fat. There are degenerative changes of the visualized lumbar spine. CT/Abdomen/Pelvis without Cont IMPRESSION: Diffuse fatty infiltration of the liver 5 cm x 4.2 cm mass in the bladder as described. A repeat examination following IV contrast and delayed imaging of the bladder is recommended. Electronically Signed: Bucky Valenzuela, at 12:19 EDT , Service support ,
--- NOTE | 2019-07-24 11:03 | EKG12_ITS ---
Test Reason : Blood Pressure : / mmHG Vent. Rate : 066 BPM Atrial Rate : 066 BPM P-R Int : 130 ms QRS Dur : 090 ms QT Int : 418 ms P-R-T Axes : -09 -07 003 degrees QTc Int : 438 ms Normal sinus rhythm with sinus arrhythmia Minimal voltage criteria for LVH, may be normal variant Borderline ECG Confirmed by MASOOD REESE ([id number]), scientific publications editor ASHA GRULLON ([id number]) on 07/27/2019 11:01:24 AM Referred By: TANYA/JUAN CARLOS Confirmed By:MASOOD REESE
--- NOTE | 2019-07-24 11:03 | ED.VIS.GI ---
History of Present Illness Informant: Patient - Abdominal Pain/Flank Pain Onset: Month(s) - 2 months Context: Gradual Onset Timing: Intermittent Quality: Cramping Location: Diffuse Current Severity: Mild Maximum Severity: Moderate Worsened by: Nothing Relieved by: Remaining Still - Nausea/Vomiting/Emesis GI Symptom: Negative for: Nausea, Vomiting - Diarrhea/Melena/Hematochezia GI Symptom: Negative for: Diarrhea, Melena, Hematochezia Associated Symptoms: Negative for: Dysuria, Frequency, Urgency Narrative: 58-year-old male history of coronary artery disease presents to the emergency department with abdominal pain. Patient has been having intermittent abdominal pain for the last 2 months. He states is gotten slightly worse. He is feeling constipated. He states he really has to strain to have a bowel movement and he describes his bowel movements as small marbles. He denies any melena hematochezia or any bright red blood per rectum. He is urinating normally. He has had some nausea but no vomiting. He is not having any difficulty swallowing. He has not had a fever. He is not having back pain. He has been using [id number]-[id number] laxatives and stool softeners with only minimal relief. He does have chronic constipation as he takes chronic narcotics 3 times daily. He also complains of just feeling generally more tired over the last 2 months as well. He feels like he is sweating more at work specifically over the last several weeks. He has not had any chest pain or shortness of breath he has not felt lightheaded or dizzy and states he does not feel like he is losing weight. He denies sick contacts or upper respiratory symptoms. He has had an endoscopy 3 years ago that he states was normal. He is on Prilosec however he is taking it only every other day because he feels it is making his constipation worse. His main concern today is that his brother from esophageal cancer. Prior similar symptoms: No Recent Illness/Hospitalization: No <Cholo Bales - Last Filed: 07/24/19 13:00> <Raymundo Laurent - Last Filed: 07/24/19 13:16> Chief Complaint: Abd Pain Past Medical History Prior records reviewed: Yes Past Medical History: - - Hypertension, chronic pain, chronic constipation, GERD, coronary artery disease, hyperlipidemia Surgical History: angioplasty, appendectomy Lives: With Family Smoking Status: Former smoker Alcohol: Occasional Drugs: None <Cholo Bales - Last Filed: 07/24/19 13:00> <Raymundo Laurent - Last Filed: 07/24/19 13:16> - Allergies and Home Meds Allergies/Adverse Reactions: Allergies clarithromycin [From Biaxin] Allergy (Verified 07/24/19 10:42) Unknown atorvastatin [From Lipitor] Adverse Reaction (Severe, Verified 07/24/19 10:42) myalgias pravastatin Adverse Reaction (Severe, Verified 07/24/19 10:42) Myalgias rosuvastatin [From Crestor] Adverse Reaction (Severe, Verified 07/24/19 10:42) myalgias simvastatin Adverse Reaction (Severe, Verified 07/24/19 10:42) myalgias moxifloxacin [From Avelox] Adverse Reaction (Unknown, Verified 07/24/19 10:42) Unknown Primary Care Physician: Manuel Rojas MD [STAFF PHYSICIAN] - (Call for appointment for urology evaluation) Tre Pearson DO [Primary Care Provider] - Review of Systems All systems negative except as indicated General: Reports: Malaise, Sweats. Denies: Chills, Fever, Weight loss Eyes: Denies: Visual changes - bilaterally, Blurred Vision - bilaterally, Diplopia ENT: Denies: Bilateral ear pain, Rhinorrhea, Sore throat Cardiovascular: Denies: Chest pain, Palpitations, Heart racing Respiratory: Denies: Dyspnea, Cough, Sputum, Dyspnea on exertion, Orthopnea, Paroxysmal nocturnal dyspnea Gastrointestinal: Reports: Abdominal pain, Nausea, Constipation. Denies: Vomiting, Diarrhea, Melena, Hematochezia Genitourinary: Denies: Dysuria, Hematuria, Frequency Musculoskeletal: Denies: Myalgias, Arthralgias, Neck pain, Back pain, Swelling, Extremity Pain Skin: Denies: Rash, Abscess, Abrasions, Wounds Neurological: Denies: Headache, Weakness, Parasthesia, Numbness Endocrine: Denies: Polyuria, Polydipsia Hematologic: Denies: Easy bruising, Easy bleeding <Chool Bales - Last Filed: 07/24/19 13:00> Physical Exam Vital Signs/Narrative: Vital Signs Temp Pulse Resp BP Pulse Ox 07/24/19 10:39 97.5 F L 74 18 177/86 H 96 Inital Vital Signs reviewed: Yes General: Well nourished, Well developed, Obese, No Acute Distress Head: Normocephalic, Atraumatic Eyes: Perrl, EOMI ENT: Moist mucous membranes Neck: Supple, Nontender, No lymphadenopathy, No JVD Cardiovascular: Regular rate, Regular rhythm, No murmurs Respiratory: No distress, CTA bilaterally, Chest nontender Abdomen: Soft, Nondistended, Normal bowel sounds, No masses, Tender, Umbilical hernia, Hernia reducible. Negative for: Guarding, Rebound tenderness Back: Nontender, Normal Inspection. Negative for: CVA tenderness, Spinal tenderness Extremities: Nontender, No edema Skin: Normal color, No rash, No Trauma Neurological: Alert, Oriented x3 Psychological: Normal affect, Normal Mood <Cholo Bales - Last Filed: 07/24/19 13:00> Vital Signs/Narrative: Vital Signs Temp Pulse Resp BP Pulse Ox 07/24/19 11:30 97.5 F L 74 18 177/86 H 96 07/24/19 10:39 97.5 F L 74 18 177/86 H 96 <Raymundo Laurent - Last Filed: 07/24/19 13:16> Diagnostic/Tx/Re-eval CT: Abdomen and Pelvis Impressions Abdomen/Pelvis CT 07/24/19 11:03 IMPRESSION: Diffuse fatty infiltration of the liver 5 cm x 4.2 cm mass in the bladder as described. A repeat examination following IV contrast and delayed imaging of the bladder is recommended. Electronically Signed: Bucky Valenzuela, at 12:19 EDT , Service support , 07/24/19 11:03 Abdomen/Pelvis without Cont [CT] Stat Laboratory Results 07/24/19 07/24/19 07/24/19 11:35 11:35 11:40 WBC 4.1 L RBC 4.87 Hgb 14.2 Hct 42.6 MCV 87.5 MCH 29.2 MCHC 33.3 RDW Std Deviation 38.5 RDW Coeff of Sina 12.1 Plt Count 232 MPV 10.6 Immature Gran % (Auto) 0.500 Neut % (Auto) 56.5 Lymph % (Auto) 31.4 Story % (Auto) 9.6 Eos % (Auto) 1.5 Baso % (Auto) 0.5 Absolute Neuts (auto) 2.3 Absolute Lymphs (auto) 1.28 Nucleated RBC % 0 Sodium 141 Potassium 3.8 Chloride 106 Carbon Dioxide 28.0 Anion Gap 7 BUN 35 H Creatinine 1.10 Estim Creat Clear Calc 73.74 Est GFR (MDRD) Af Amer 88 Est GFR (MDRD) Non-Af 72 BUN/Creatinine Ratio 31.8 H Glucose 120 H Calcium 9.2 Total Bilirubin 0.60 AST 42 H ALT 55 Alkaline Phosphatase 86 Troponin I < 0.015 Total Protein 7.5 Albumin 4.3 Globulin 3.2 Albumin/Globulin Ratio 1.3 Lipase 151 Urine Color Yellow Urine Clarity Clear Urine pH 6.0 Ur Specific [place] 1.015 Urine Protein 15 H Urine Glucose (UA) Normal Urine Ketones 5 H Urine Occult Blood Negative Urine Nitrite Negative Urine Bilirubin Negative Urine Urobilinogen Normal Ur Leukocyte Esterase Negative Urine RBC 0 SEEN Urine WBC 0 SEEN Ur Squamous Epith Cells 0 SEEN Amorphous Sediment 1+ Urine Bacteria 0 SEEN Urine Mucus 0 SEEN - Rhythm Strip Rhythm Strip: Sinus Rhythm Rate: 66 Ectopy: None - EKG Initial EKG Interpretation: Sinus Rhythm, No Acute Injury Pattern Prior: Unchanged - Medical Decision Making Because the patient was given complaining of multiple vague constitutional symptoms a comprehensive work-up was pursued. His EKG was normal sinus rhythm. No signs of acute ischemic change. Unchanged from his previous EKG. Laboratory work-up was unremarkable. Troponin was negative Urinalysis unremarkable as well. CT scan abdomen and pelvis was obtained which demonstrated a 5 x 4 cm bladder mass. At this time the patient is tolerating by mouth his abdomen is soft nontender he has not required any analgesia and he has stable vital signs. I spoke with Dr. Rojas of urology who will follow up with the patient closely. Patient was informed of findings and was agreeable with our plan of outpatient management as at this time no clinical indications for admission are found. He will continue to treat his constipation and follow-up on Saturday with urology. <Cholo Bales - Last Filed: 07/24/19 13:00> - Medical Decision Making Seen and evaluated independently and in conjunction with physician miller head assistant wet process. Agree with notes above unless documented otherwise. CT results as above. I do not think his bladder mass is giving him the abdominal pain that he is describing, which has been present for months and is associated with bloating, bilateral diffuse abdominal pain that focuses at the periumbilical area and has improved before with bowel movements, however he suggest that constipation is only new within the last less than 1 week. He has psoriatic arthritis and is on Percocet for that. When asked if he has been evaluated for Biologics and other nonnarcotic treatments for his psoriatic arthritis, he states he was slated to before the coronavirus pandemic started, and was unable to be evaluated as a result. He is very willing to be evaluated for this now, to try to get off of the Percocet. This may take some of the confusion out of why he is having abdominal pain, or he may have an EGD or colonoscopy that could diagnose the problem, since the CT does not. As above, he will follow-up with urology and otherwise a stable to be discharged home. Prescribed Bentyl to use as needed. Also advised to use magnesium citrate. <Raymundo Laurent - Last Filed: 07/24/19 13:16> ED Disposition <Cholo Bales - Last Filed: 07/24/19 13:00> <Raymundo Laurent - Last Filed: 07/24/19 13:16> - Plan for ED Patient: Disposition: Home or Assisted Living Diagnosis: Diffuse abdominal pain, Bladder mass Instructions: ED Constipation, ED Unknown Causes of Abdominal Pain Male Prescriptions: Dicyclomine HCl [Bentyl] 1 - 2 cap PO . Q4-6H PRN #20 cap PRN Reason: Abdominal pain Referrals: Tre Pearson DO [Primary Care Provider] - Manuel Rojas MD [STAFF PHYSICIAN] - 07/27/19 (Call for appointment for urology evaluation on Saturday) Additional Instructions: With regards to your constipation, you may try cleansing by getting a bottle of magnesium citrate and drinking half of the bottle, along with plenty of fluids afterwards. If you do not have a bowel movement within the next 24 hours, you may then repeat with the second half of the bottle.
[2019-07-24 11:30] VITALS: BP 177/86; PULSE 74; RESP 18; TEMP 36.4; O2SAT 96
[2019-07-24] MEDS: 0.9% Normal Saline 1,000 ML 1000 ML IV (11:34)
[2019-07-24 11:51] LABS: Bacteria 0 SEEN /hpf (None Seen); Mucous, Urine 0 SEEN /hpf (<or=2+); Red Blood Cells-Urine 0 SEEN /hpf (0-5); Squamous Epithelial Cells - UA 0 SEEN /hpf (0-5); White Blood Cells 0 SEEN /hpf (0-5)
[2019-07-24 11:54] LABS: Absolute Lymphocyte Count 1.28 X10^3/uL (0.83-4.51); Absolute Neutrophil Count 2.3 X10^3/uL (2.0-7.7); Basophil# 0.02 X10^3/uL; Basophil% 0.5 % (0-1); Eosinophil# 0.06 X10^3/uL; Eosinophils% 1.5 % (0-5); Hematocrit 42.6 % (40-54); Hemoglobin 14.2 g/dL (13.0-16.5); Lymphocyte # 1.28 X10^3/ul (4.0); Lymphocyte % 31.4 % (19-41); Mean Corp Hgb Conc 33.3 g/dL (32-36); Mean Corpuscular Hgb 29.2 pg (27.0-32.0); Mean Corpuscular Volume 87.5 fL (80-94); Mean Platelet Vol. 10.6 fl (6.2-12.0); Monocyte# 0.39 X10^3/uL; Monocyte% 9.6 % (0-10); NRBC Flagged by Analyzer 0 % (0-5); Neutrophil % 56.5 % (47-70); Platelet Count 232 K/mm3 (150-450); RBC Distribution Width CV 12.1 % (11.6-14.6); RBC Distribution Width SD 38.5 fl (35.1-43.9); Red Blood Count 4.87 M/mm3 (4.6-6.2); White Blood Count 4.1 K/mm3 (4.4-11.0)
[2019-07-24 12:05] LABS: Color, Urine Yellow (Yellow); Glucose, Dipstick Normal (Normal); Ketone-Dipstick 5 mg/dl (Negative); Leukocyte Esterase-Dipstick Negative /ul (Negative); Nitrite-Dipstick Negative (Negative); Occult Blood-Urine Negative /ul (Negative); Protein-Dipstick 15 mg/dl (Negative); Specific Gravity, Urine 1.015 (1.002-1.030); Urine Bilirubin Dipstick Negative (Negative); Urine Clarity Clear (Clear); Urine Urobilinogen Normal (Normal)
[2019-07-24 12:12] LABS: ALB/GLOB Ratio 1.3 RATIO (0.9-2.4); AST(SGOT) 42 U/L (15-37); Alanine Aminotransfer ALT/SGPT 55 U/L (16-61); Albumin, Serum 4.3 g/dL (3.2-5.0); Alkaline Phosphatase 86 U/L (45-117); Anion Gap 7 (5-15); BUN 35 mg/dL (7-18); BUN/Creat Ratio 31.8 RATIO (10-20); Calcium,Total 9.2 mg/dL (8.5-10.1); Chloride 106 mmol/L (98-107); EST Glomerular Filtration Rate 72 mL/min (>60); Est Glom Filt Rate - Afr Amer 88 mL/min (>60); Estimated Creatinine Clearance 73.74 ml/min; Globulin 3.2 g/dL (2.2-4.2); Glucose 120 mg/dL (74-106); Lipase 151 U/L (73-393); Potassium 3.8 mmol/L (3.5-5.1); Protein, Total 7.5 g/dL (6.4-8.2); Sodium Level 141 mmol/L (136-145)
[2019-07-24 12:15] LABS: Amorphous Sediment 1+
[2019-07-24 13:12] VITALS: BP 166/91; PULSE 67; RESP 16; O2SAT 98
== END 2019-07-24 13:24 | disposition home or self-care (01) ==
PROVIDERS: Emergency Provider Physician Assistant Medical; PCP Family Medicine
DX: N32.9 Bladder disorder, unspecified (principal); R10.84 Generalized abdominal pain; I25.10 Atherosclerotic heart disease of native coronary artery without angina pectoris; K59.03 Drug induced constipation; T40.605A Adverse effect of unspecified narcotics, initial encounter; G89.29 Other chronic pain; E78.5 Hyperlipidemia, unspecified; I10 Essential (primary) hypertension; K21.9 Gastro-esophageal reflux disease without esophagitis; Z87.891 Personal history of nicotine dependence; E66.9 Obesity, unspecified; L40.50 Arthropathic psoriasis, unspecified
CPT/HCPCS: 74176; 80053; 81001; 83690; 84484; 85025; 93005; 96360; 96361; 99284; J7030

== ENCOUNTER → 2019-09-23 | Outpatient (CLI) | payer OTHER, SELFPAY ==
[2019-09-26 14:08] LABS: Testosterone, Free 4.33 ng/dL (5.00-21.00)
[2019-09-26 14:39] LABS: Testosterone, % Free 2.53 % (1.50-4.20); Testosterone, Total 171 ng/dL (264-916)
== END | disposition home or self-care (01) ==
PROVIDERS: PCP Family Medicine
DX: E29.1 Testicular hypofunction (principal)
CPT/HCPCS: 36415; 84402; 84403

== ENCOUNTER → 2020-01-12 08:33 | Outpatient (CLI) | payer OTHER, SELFPAY ==
[2020-01-12 13:01] LABS: AST(SGOT) 33 U/L (15-37); Alanine Aminotransfer ALT/SGPT 58 U/L (16-61); Alkaline Phosphatase 72 U/L (45-117); Bilirubin, Direct 0.08 mg/dL (0.00-0.30); Cholesterol 188 mg/dL (200); Globulin 2.9 g/dL (2.2-4.2); High Density Lipoprotein 28 mg/dL; Protein, Total 6.9 g/dL (6.4-8.2); Triglycerides 196 mg/dL; Very Low Density Lipoprotein 39 mg/dL (5-40)
== END ==
PROVIDERS: PCP Family Medicine; Referring Provider Internal Medicine Cardiovascular Disease; Visit Provider Internal Medicine Cardiovascular Disease
DX: I25.10 Atherosclerotic heart disease of native coronary artery without angina pectoris (principal); E78.5 Hyperlipidemia, unspecified
CPT/HCPCS: 36415; 80061; 80076

== ENCOUNTER → 2020-12-30 07:40 | Outpatient (CLI) | payer OTHER, SELFPAY ==
[2020-12-30 10:06] LABS: AST(SGOT) 22 U/L (15-37); Alanine Aminotransfer ALT/SGPT 40 U/L (16-61); Alkaline Phosphatase 65 U/L (45-117); Bilirubin, Direct 0.11 mg/dL (0.00-0.30); Cholesterol 188 mg/dL (200); Globulin 3.4 g/dL (2.2-4.2); High Density Lipoprotein 28 mg/dL; Protein, Total 7.4 g/dL (6.4-8.2); Triglycerides 214 mg/dL; Very Low Density Lipoprotein 43 mg/dL (5-40)
== END ==
PROVIDERS: PCP Family Medicine; Referring Provider Internal Medicine Cardiovascular Disease; Visit Provider Internal Medicine Cardiovascular Disease
DX: E78.5 Hyperlipidemia, unspecified (principal); E78.00 Pure hypercholesterolemia, unspecified
CPT/HCPCS: 36415; 80061; 80076

== ENCOUNTER → 2021-01-24 | Outpatient (CLI) | payer OTHER, SELFPAY | END | disposition home or self-care (01) | LOC: LABSPEC 15:47 | PROVIDERS: PCP Family Medicine; Visit Provider Family Medicine | DX: Z20.822 Contact with and (suspected) exposure to COVID-19 (principal) | CPT/HCPCS: 87633; 87635; U0005; U0003 ==

== ENCOUNTER → 2022-02-13 | Outpatient (CLI) | payer OTHER, SELFPAY ==
[2022-02-13 11:23] LABS: AST(SGOT) 34 U/L (15-37); Alanine Aminotransfer ALT/SGPT 56 U/L (16-61); Alkaline Phosphatase 80 U/L (45-117); Bilirubin, Direct 0.11 mg/dL (0.00-0.30); Cholesterol 187 mg/dL (200); High Density Lipoprotein 27 mg/dL; Triglycerides 278 mg/dL; Very Low Density Lipoprotein 56 mg/dL (5-40)
== END | disposition home or self-care (01) ==
LOC: MTLAB 07:04
PROVIDERS: PCP Family Medicine; Referring Provider Nurse Practitioner Family; Visit Provider Nurse Practitioner Family
DX: I25.10 Atherosclerotic heart disease of native coronary artery without angina pectoris (principal); E78.5 Hyperlipidemia, unspecified
CPT/HCPCS: 36415; 80061; 80076

== ENCOUNTER → 2022-07-12 | Outpatient (CLI) | payer OTHER, SELFPAY ==
[2022-07-12 12:36] LABS: Absolute Lymphocyte Count 1.43 X10^3/uL (0.83-4.51); Absolute Neutrophil Count 2.3 X10^3/uL (2.0-7.7); Basophil# 0.04 X10^3/uL; Basophil% 0.9 % (0-1); Eosinophils% 2.3 % (0-5); Hemoglobin 14.4 g/dL (13.0-16.5); Lymphocyte # 1.43 X10^3/ul (0.83-4.51); Lymphocyte % 33.3 % (19-41); Mean Corp Hgb Conc 32.7 g/dL (32-36); Mean Corpuscular Volume 88.7 fL (80-94); Mean Platelet Vol. 11.4 fl (6.2-12.0); Monocyte# 0.41 X10^3/uL; Monocyte% 9.5 % (0-10); NRBC Flagged by Analyzer 0 % (0-5); Neutrophil % 53.5 % (47-70); Platelet Count 228 K/mm3 (150-450); RBC Distribution Width CV 12.7 % (11.6-14.6); Red Blood Count 4.96 M/mm3 (4.6-6.2); White Blood Count 4.3 K/mm3 (4.4-11.0)
[2022-07-12 12:51] LABS: Anion Gap 7 (5-15); BUN 29 mg/dL (7-18); BUN/Creat Ratio 25.2 RATIO (10-20); Calcium,Total 9.3 mg/dL (8.5-10.1); Chloride 102 mmol/L (98-107); Creatinine, Serum 1.15 mg/dL (0.70-1.30); EST Glomerular Filtration Rate 68 mL/min (>60); Est Glom Filt Rate - Afr Amer 82 mL/min (>60); Glucose 150 mg/dL (74-106); PSA,Total - Annual Screen 0.59 ng/mL (0.00-4.00); Potassium 4.2 mmol/L (3.5-5.1); Sodium Level 137 mmol/L (136-145)
[2022-07-12 13:24] LABS: Hemoglobin A1c 7.1 % (3.8-5.6)
== END | disposition home or self-care (01) ==
LOC: BFHLAB 09:34
PROVIDERS: PCP Family Medicine; Referring Provider Family Medicine; Visit Provider Family Medicine
DX: Z00.00 Encounter for general adult medical examination without abnormal findings (principal); Z12.5 Encounter for screening for malignant neoplasm of prostate
CPT/HCPCS: 36415; 80048; 83036; 84153; 85025; G0103

== ENCOUNTER → 2023-03-06 | Outpatient (CLI) | payer OTHER, SELFPAY ==
--- OUTSIDE RECORDS SUMMARY | 2023-03-06 07:24 | XMS RPT_ITS | CCD ---
Author Name Unknown Address [address] [place] [address] Organization [facility] Care Team Providers Care Manager Practice Name Role Phone RINA Botello, Irma Ramirez Unavailable [phone] Sherry Alvarenga Unavailable Unavailable Allergies Allergy Classification Reported Allergen(s) Allergy Type Date of Onset Reaction(s) Facility (2 sources) atorvastatin Drug Allergy 04-14-2013 Myalgias [facility] Work Phone: [phone] (2 sources) clarithromycin Drug Allergy 06-27-2010 [facility] Work Phone: [phone] (2 sources) fish, unspecified; Translations: [SIMVASTATIN] food allergy 04-14-2013 Muscle aches [facility] Work Phone: [phone] (4 sources) fluconazole Drug Allergy 06-27-2010 [facility] Work Phone: [phone] (2 sources) moxifloxacin Drug Allergy 06-27-2010 [facility] Work Phone: [phone] (2 sources) pravastatin Drug Allergy 10-24-2015 myalgias [facility] Work Phone: [phone] (2 sources) rosuvastatin Drug Allergy 02-14-2015 myalgias [facility] Work Phone: [phone] Medications Completed/Discontinued Medications Medication Drug Class(es) Dates Sig (Normalized) Sig (Original) acetaminophen 325 mg / oxyCODONE hydrochloride 5 mg oral tablet (4 sources) Opioid Agonist Start: 03-17-2015 End: 07-14-2015 take 1 tablet by mouth once daily as needed for pain OXYCODONE-ACETAMI NOPHEN 5-325 MG TABS One tablet by mouth daily at night as needed for severe pain OXYCODONE-ACETAMI NOPHEN [id number] Ej Vazquez MD amoxicillin 875 mg / clavulanate 125 mg oral tablet (2 sources) Penicillin-class Antibacterial Start: 03-24-2015 End: 04-03-2015 take 1 tablet by mouth twice daily AMOXICILLIN-POT CLAVULANATE 875-125 MG TABS 1 tablet by mouth twice per day AMOXICILLIN-POT CLAVULANATE [id number] Tre Pearson DO aspirin 325 mg oral tablet (6 sources) Nonsteroidal Anti-inflammatory Drug Start: 06-27-2010 take 1 tablet by mouth once daily ASPIRIN 325 MG TABS One tablet by mouth daily ASPIRIN [id number] [employer] Sales Problems Active Problems Problem Classification Problem Date Documented Da te Episodic/Chronic Anxiety disorders (2 sources) Anxiety disorder; Translations: [Anxiety disorder, unspecified] Onset: 03-17-2015 03-17-2015 Chronic Coronary atherosclerosis and other heart disease (8 sources) Coronary arteriosclerosis; Translations: [Coronary atherosclerosis] Onset: 06-27-2010 Resolved: 07-14-2015 06-27-2010 Chronic Disorders of lipid metabolism (4 sources) Hypertriglyceridemi a; Translations: [Hyperlipidemia] Onset: 06-27-2010 01-22-2017 Chronic Essential hypertension (2 sources) Hypertensive disorder; Translations: [Essential (primary) hypertension] Onset: 01-12-2016 01-12-2016 Chronic Osteoarthritis (2 sources) Degenerative joint disease involving multiple joints; Translations: [Polyosteoarthritis , unspecified] Onset: 03-17-2015 03-17-2015 Chronic Other inflammatory condition of skin (2 sources) Psoriasis; Translations: [Psoriasis, unspecified] Onset: 08-05-2014 08-05-2014 Chronic Unclassified (14 sources) Body mass index (BMI) 36.0-36.9, adult; Translations: [Body mass index (BMI) 37.0-37.9, adult] Onset: 11-25-2012 Resolved: 07-14-2015 11-25-2012 Chronic Unclassified (2 sources) Long-term drug therapy; Translations: [Other intermission coordinator (current) drug therapy] Onset: 06-27-2010 06-27-2010 Unclassified (2 sources) Placement of stent in coronary artery ; Translations: [Presence of coronary angioplasty implant and graft] Onset: 06-27-2010 07-14-2015 Past or Other Problems Problem Classification Problem Date Documented Date Episodic/Chronic Allergic reactions (2 sources) Environmental allergy; Translations: [Other allergy] Onset: 04-09-2014 04-11-2014 Episodic Coronary atherosclerosis and other heart disease (2 sources) Coronary angioplasty status; Translations: [Coronary angioplasty status] Onset: 06-27-2010 06-27-2010 Episodic Other connective tissue disease (2 sources) Muscle pain; Translations: [Myalgia] Onset: 06-27-2010 06-27-2010 Episodic Other eye disorders (2 sources) Subconjunctival hemorrhage; Translations: [Conjunctival hemorrhage, right eye] Onset: 03-17-2015 Resolved: 03-31-2015 03-17-2015 Episodic Other lower respiratory disease (2 sources) Dyspnea; Translations: [Dyspnea, unspecified] Onset: 06-27-2010 06-27-2010 Episodic Other upper respiratory infections (2 sources) Acute sinusitis; Translations: [Acute sinusitis, unspecified] Onset: 08-05-2014 Resolved: 08-12-2014 08-05-2014 Episodic Sprains and strains (2 sources) Strain of muscle, fascia and tendon of left hip, initial encounter; Translations: [Strain of muscle, fascia and tendon of left hip, initial encounter] Onset: 03-15-2016 03-16-2016 Episodic Superficial injury; contusion (2 sources) Contusion of other specified part of neck, initial encounter; Translations: [Contusion of other specified part of neck, initial encounter] Onset: 04-05-2016 04-05-2016 Episodic Syncope (2 sources) Syncope and collapse; Translations: [Syncope and collapse] Onset: 06-27-2010 06-27-2010 Episodic Results Test Name Value Interpretation Reference Range Facil ity Vital Signs Date Time Vital Sign Value Performing Clinician Kike izquierdo 07-10-2016 15:29-0400 BMI (Body Mass Index) 37.46 kg/m2 Sherry Benitez [facility] Work Phone: 07-10-2016 15:29-0400 BP Diastolic 60 mm[Hg] [facility] Work Phone: 07-10-2016 15:29-0400 BP Systolic 100 mm[Hg] [facility] Work Phone: 07-10-2016 15:29-0400 Height 177.8 cm [facility] Work Phone: 07-10-2016 15:29-0400 Pulse (Heart Rate) 56 /min [facility] Work Phone: 07-10-2016 15:29-0400 Respiratory Rate 20 /min [facility] Work Phone: 07-10-2016 15:29-0400 Weight 118.43 kg [facility] Work Phone: 01-12-2016 14:17-0500 BSA (Body Surface Area) 2.32 m2 [facility] Work Phone: 03-17-2015 16:37-0500 Body Temperature 98.4 [degF] [facility] Work Phone: 11-25-2012 16:51-0400 Height 177.8 cm [facility] Work Phone: 11-25-2012 16:51-0400 Weight 114.09 kg [facility] Work Phone: Procedures Date Procedure Procedure Detail Performing Clinician Start: 01-22-2017 End: 01-24-2017 *BMP Irma Botello PA-C Work Phone: Start: 01-22-2017 End: 01-22-2017 Follow Up Appt 6 months Irma villalobos PA-C Work Phone: Start: 01-22-2017 End: 01-22-2017 PFM Irma Botello PA-C Work Phone: Start: 07-10-2016 End: 12-27-2016 Follow Up Appt 6 months Ashley Strickland Start: 07-10-2016 End: 12-27-2016 MMM Ej Vazquez MD Start: 06-25-2016 End: 06-29-2016 *Hepatic Function Panel Ashley Strickland Start: 06-25-2016 End: 06-29-2016 Lipid 1996 panel - Serum or Plasma Ej Vazquez MD Start: 01-12-2016 End: 01-12-2016 *Hepatic Function Panel Irma villalobos PA-C Work Phone: Start: 01-12-2016 End: 01-12-2016 POULTRY FIELD SERVICE TECHNICIAN Irma Botello PA-C Work Phone: Start: 01-12-2016 End: 01-12-2016 Follow Up Appt 6 months Irma villalobos PA-C Work Phone: Start: 01-12-2016 End: 01-12-2016 Lipid 1996 panel - Serum or Plasma Irma Botello PA-C Work Phone: Start: 12-07-2015 End: 01-09-2016 *Hepatic Function Panel Ashley Strickland Start: 12-07-2015 End: 01-09-2016 Lipid Jt panel - Serum or Plasma Ej Vazquez MD Start: 05-24-2015 End: 06-07-2015 *Hepatic Function Panel Ashley Strickland Start: 05-24-2015 End: 06-07-2015 Lipid Jt panel - Serum or Plasma Ej Vazquez MD Start: 12-20-2014 End: 01-06-2016 MAURO Botello PA-C Work Phone: Start: 12-20-2014 End: 12-21-2014 Documentation of current medications Irma Botello PA-C Work Phone: Start: 12-20-2014 End: 01-06-2016 Ecg routine ecg w/least 12 lds w/i&r Irma Botello PA-C Work Phone: Start: 12-20-2014 End: 01-06-2016 Follow Up Appt 6 months Irma villalobos PA-C Work Phone: Start: 10-26-2014 End: 12-25-2014 *Hepatic Function Panel Ashley Strickland Start: 10-26-2014 End: 01-24-2015 Lipid Jt panel - Serum or Plasma Ej Vazquez MD Start: 09-28-2014 End: 12-27-2016 ENT referral Tre Pearson DO Work Phone: Start: 06-15-2014 End: 06-15-2014 Follow Up Appt 6 months Ashley Strickland Start: 06-15-2014 End: 06-15-2014 MMM Ej Vazquez MD Start: 06-15-2014 End: 01-06-2016 Nuclear stress test -exercise Ej Vazquez MD Start: 05-24-2014 End: 05-27-2014 *Hepatic Function Panel Ashley Strickland Start: 05-24-2014 End: 05-27-2014 Lipid 1996 panel - Serum or Plasma Ej Vazquez MD Start: 12-09-2013 End: 12-09-2013 POULTRY FIELD SERVICE TECHNICIAN Irma Botello PA-C Work Phone: Start: 12-09-2013 End: 12-09-2013 Ecg routine ecg w/least 12 lds w/i&r Irma Botello PA-C Work Phone: Start: 12-09-2013 End: 12-09-2013 Follow Up Appt 6 months Irma villalobos PA-C Work Phone: Start: 10-26-2013 End: 11-24-2013 *Hepatic Function Panel Ashley Strickland Start: 10-26-2013 End: 11-24-2013 Lipid 1996 panel - Serum or Plasma Ej Vazquez MD Start: 06-09-2013 End: 11-26-2013 Follow Up Appt 6 months Ashley Strickland Start: 06-09-2013 End: 11-26-2013 MMM Ej Vazquez MD Start: 04-25-2013 End: 05-18-2013 *Hepatic Function Panel Ashley Strickland Start: 04-25-2013 End: 05-18-2013 Lipid 1996 panel - Serum or Plasma Ej Vazquez MD Start: 11-25-2012 End: 04-21-2013 *Hepatic Function Panel Ashley Strickland Start: 11-25-2012 End: 11-26-2012 POULTRY FIELD SERVICE TECHNICIAN Ej Vazquez MD Start: 11-25-2012 End: 11-26-2012 Follow Up Appt 6 months Ashley Strickland Start: 11-25-2012 End: 04-21-2013 Lipid 1996 panel - Serum or Plasma Ej Vazquez MD Start: 11-19-2012 End: 11-23-2012 *Hepatic Function Panel Norm schwab MD Start: 11-19-2012 End: 11-24-2012 Lipid 1996 panel - Serum or Plasma Norm Billingsley MD Start: 05-01-2012 End: 05-01-2012 Follow Up Appt 6 months Norm schwab MD Start: 12-04-2011 End: 12-04-2011 Follow Up Appt 6 months Norm schwab MD Start: 10-31-2011 End: 11-02-2011 *Hepatic Function Panel Norm schwab MD Start: 10-31-2011 End: 11-02-2011 Lipid 1996 panel - Serum or Plasma Norm Billingsley MD Start: 05-03-2011 End: 05-03-2011 Ecg routine ecg w/least 12 lds w/i&r Norm Billingsley MD Start: 05-03-2011 End: 05-03-2011 Follow Up Appt 6 months Norm schwab MD Plan of Treatment Date Care Activity Detail Author Start: 10-23-2017 End: 10-23-2017 Appointment Appointment [facility] Work Phone: Start: 06-28-2017 End: 06-29-2016 *Hepatic Function Panel *Hepatic Function Panel [facility] Work Phone: Start: 06-28-2017 End: 06-29-2016 Lipid panel [AGGREGATE] *Lipid Profile CC PCP [facility] Work Phone: Start: 01-22-2017 End: 01-22-2017 Appointment Appointment [facility] Work Phone: Start: 01-22-2017 End: 01-24-2017 *BMP *BMP [facility] Work Phone: Start: 01-22-2017 End: 01-22-2017 Follow Up Appt 6 months Follow Up Appt 6 months [facility] Work Phone: Start: 01-22-2017 End: 01-22-2017 PFM PFM [facility] Work Phone: Start: 07-10-2016 End: 12-27-2016 Follow Up Appt 6 months Follow Up Appt 6 months [facility] Work Phone: Start: 07-10-2016 End: 12-27-2016 MMM MMM [facility] Work Phone: Start: 06-25-2016 End: 06-29-2016 *Hepatic Function Panel *Hepatic Function Panel [facility] Work Phone: Start: 06-25-2016 End: 06-29-2016 Lipid panel [AGGREGATE] *Lipid Profile CC PCP [facility] Work Phone: Start: 03-21-2016 End: 03-21-2016 Mri any jt lower extrem w/o contrast matrl MRI Joint Lower Extremity [facility] Work Phone: Start: 01-12-2016 End: 01-12-2016 *Hepatic Function Panel *Hepatic Function Panel [facility] Work Phone: Start: 01-12-2016 End: 01-12-2016 POULTRY FIELD SERVICE TECHNICIAN POULTRY FIELD SERVICE TECHNICIAN [facility] Work Phone: Start: 01-12-2016 End: 01-12-2016 Follow Up Appt 6 months Follow Up Appt 6 months [facility] Work Phone: Start: 01-12-2016 End: 01-12-2016 Lipid panel [AGGREGATE] *Lipid Profile CC PCP [facility] Work Phone: Start: 12-07-2015 End: 01-09-2016 *Hepatic Function Panel *Hepatic Function Panel [facility] Work Phone: Start: 12-07-2015 End: 01-09-2016 Lipid panel [AGGREGATE] *Lipid Profile CC PCP [facility] Work Phone: Start: 05-24-2015 End: 06-07-2015 *Hepatic Function Panel *Hepatic Function Panel [facility] Work Phone: Start: 05-24-2015 End: 06-07-2015 Lipid panel [AGGREGATE] *Lipid Profile CC PCP [facility] Work Phone: Start: 12-20-2014 End: 01-06-2016 POULTRY FIELD SERVICE TECHNICIAN POULTRY FIELD SERVICE TECHNICIAN [facility] Work Phone: Start: 12-20-2014 End: 01-06-2016 Ecg routine ecg w/least 12 lds w/i&r EKG (In office) [facility] Work Phone: Start: 12-20-2014 End: 01-06-2016 Follow Up Appt 6 months Follow Up Appt 6 months [facility] Work Phone: Start: 10-26-2014 End: 06-30-2014 *Hepatic Function Panel *Hepatic Function Panel [facility] Work Phone: Start: 10-26-2014 End: 06-30-2014 Lipid panel [AGGREGATE] *Lipid Profile CC PCP [facility] Work Phone: Start: 09-28-2014 End: 09-28-2014 ENT referral ENT referral [facility], [address] [place] [address], [id number] [facility] Work Phone: Start: 06-15-2014 End: 06-15-2014 Follow Up Appt 6 months Follow Up Appt 6 months [facility] Work Phone: Start: 06-15-2014 End: 06-15-2014 MMM MMM [facility] Work Phone: Start: 06-15-2014 End: 01-06-2016 Nuclear stress test -exercise Nuclear stress test -exercise [employer] Phone: Start: 05-24-2014 End: 05-27-2014 *Hepatic Function Panel *Hepatic Function Panel [facility] Work Phone: Start: 05-24-2014 End: 05-27-2014 Lipid panel [AGGREGATE] *Lipid Profile CC PCP [facility] Work Phone: Start: 12-09-2013 End: 12-09-2013 POULTRY FIELD SERVICE TECHNICIAN POULTRY FIELD SERVICE TECHNICIAN [facility] Work Phone: Start: 12-09-2013 End: 12-09-2013 Ecg routine ecg w/least 12 lds w/i&r EKG (In office) [facility] Work Phone: Start: 12-09-2013 End: 12-09-2013 Follow Up Appt 6 months Follow Up Appt 6 months [facility] Work Phone: Start: 10-26-2013 End: 11-24-2013 *Hepatic Function Panel *Hepatic Function Panel [facility] Work Phone: Start: 10-26-2013 End: 11-24-2013 Lipid panel [AGGREGATE] *Lipid Profile CC PCP [facility] Work Phone: Start: 06-09-2013 End: 11-26-2013 Follow Up Appt 6 months Follow Up Appt 6 months [facility] Work Phone: Start: 06-09-2013 End: 11-26-2013 MMM MMM [facility] Work Phone: Start: 04-25-2013 End: 05-18-2013 *Hepatic Function Panel *Hepatic Function Panel [facility] Work Phone: Start: 04-25-2013 End: 05-18-2013 Lipid panel [AGGREGATE] *Lipid Profile CC PCP [facility] Work Phone: Start: 11-25-2012 End: 04-21-2013 *Hepatic Function Panel *Hepatic Function Panel [facility] Work Phone: Start: 11-25-2012 End: 11-26-2012 POULTRY FIELD SERVICE TECHNICIAN POULTRY FIELD SERVICE TECHNICIAN [facility] Work Phone: Start: 11-25-2012 End: 11-26-2012 Follow Up Appt 6 months Follow Up Appt 6 months [facility] Work Phone: Start: 11-25-2012 End: 04-21-2013 Lipid panel [AGGREGATE] *Lipid Profile CC PCP [facility] Work Phone: Start: 11-19-2012 End: 11-23-2012 *Hepatic Function Panel *Hepatic Function Panel [facility] Work Phone: Start: 11-19-2012 End: 11-24-2012 Lipid panel [AGGREGATE] *Lipid Profile [facility] Work Phone: Start: 05-01-2012 End: 05-01-2012 Follow Up Appt 6 months Follow Up Appt 6 months [facility] Work Phone: Start: 12-04-2011 End: 12-04-2011 Follow Up Appt 6 months Follow Up Appt 6 months [facility] Work Phone: Start: 10-31-2011 End: 11-02-2011 *Hepatic Function Panel *Hepatic Function Panel [facility] Work Phone: Start: 10-31-2011 End: 11-02-2011 Lipid panel [AGGREGATE] *Lipid Profile [facility] Work Phone: Start: 05-03-2011 End: 05-03-2011 Ecg routine ecg w/least 12 lds w/i&r EKG (In office) [facility] Work Phone: Start: 05-03-2011 End: 05-03-2011 Follow Up Appt 6 months Follow Up Appt 6 months [facility] Work Phone: Patient Education [facility] Work Phone: Summary Purpose Family History No Family History Records Found Advance Directives No Advanced Directives Records Found Additional Source Comments (unrecognized sect ion and content) No Status Records Found INFORMATION SOURCE (unrecogn ized section and content) FOR RECORDS PERTAINING TO PATIENTS WHO ARE OR HAVE BEEN ENROLLED IN A CHEMICAL DEPENDENCY/SUBSTANCEABUSE PROGRAM, SOME INFORMATION MAY BE OMITTED. This clinical summary was aggregated from multiple sources. Caution should be exercised in using it in the provision of clinical care. This summary normalizes information from multiple sources, and as a consequence, information in this document may materially change the coding, format and clinical context of patient data. In addition, data may be omitted in some cases. CLINICAL DECISIONS SHOULD BE BASED ON THE PRIMARY CLINICAL RECORDS. [email or web address] provides no warranty or guarantee of the accuracy or completeness of information in this document.
[2023-03-06 11:45] LABS: AST(SGOT) 20 U/L (15-37); Alanine Aminotransfer ALT/SGPT 35 U/L (16-61); Albumin, Serum 3.9 g/dL (3.2-5.0); Alkaline Phosphatase 61 U/L (45-117); Bilirubin, Direct 0.09 mg/dL (0.00-0.30); Cholesterol 168 mg/dL (200); Globulin 3.2 g/dL (2.2-4.2); High Density Lipoprotein 26 mg/dL; Protein, Total 7.1 g/dL (6.4-8.2); Triglycerides 239 mg/dL; Very Low Density Lipoprotein 48 mg/dL (5-40)
== END | disposition home or self-care (01) ==
PROVIDERS: PCP Family Medicine; Referring Provider Nurse Practitioner Family; Visit Provider Nurse Practitioner Family
DX: E78.00 Pure hypercholesterolemia, unspecified (principal)
CPT/HCPCS: 36415; 80061; 80076

== ENCOUNTER → 2023-06-19 | Outpatient (CLI) | payer OTHER, SELFPAY | END | disposition home or self-care (01) | LOC: BFHLAB 15:05 → LABSPEC 15:05 | PROVIDERS: PCP Nurse Practitioner Family; Referring Provider Nurse Practitioner Family; Visit Provider Nurse Practitioner Family | DX: N39.0 Urinary tract infection, site not specified (principal) | CPT/HCPCS: 87086 ==

== ENCOUNTER → 2024-01-01 | Outpatient (CLI) | payer MEDICARE, OTHER, SELFPAY | END | disposition home or self-care (01) | LOC: MTRAD 12:53 | PROVIDERS: PCP Nurse Practitioner Family; Referring Provider Nurse Practitioner Family; Visit Provider Nurse Practitioner Family | DX: K59.00 Constipation, unspecified (principal); R10.32 Left lower quadrant pain | CPT/HCPCS: 74018 ==

== ENCOUNTER 2024-02-07 09:23 | Day surgery (SDC) | payer MEDICARE, OTHER, SELFPAY ==
--- NOTE | 2024-02-06 07:38 | PAT.ANE_ITS ---
PAT status Pat Assessment PAT Assessment: PAT Anesthesia Results to Eval 02/05/24 14:44 Pre-Assessment Diagnosis/Proposed Procedure Planned Operative Procedure(s): COLONOSCOPY/EGD Anesthesia History Anesthesia History - interpreter translator: Anesthesia History - interpreter translator Hx Hospitalization No 02/05/24 14:42 Any Problems With Anesthesia No 02/05/24 14:42 Cholinesterase deficiency No 02/05/24 14:42 You/Your Family Experience No 02/05/24 14:42 fever (hyperthermia) with Relationship Recent Exposure to Contagious Disease Does patient have nerve No 02/05/24 14:42 stimulator Patient instructed to have device shut off --Does patient have Pacemaker or ICD? When Was Last Pacemaker Check QUESTION #4 FULL TEXT: You/Your Family Experience fever (hyperthermia) with Anesthesia Last Oral Intake Last Oral intake: Last Oral Intake NPO since Meds taken in AM with sips of water? Meds patient instructed to take am of surgery PONV PONV - interpreter translator: PONV - interpreter translator Female No 02/05/24 14:42 HX of Motion Sickness No 02/05/24 14:42 HX of N/V After Surgery No 02/05/24 14:42 Non-Smoker Yes 02/05/24 14:42 Duration of Surgery greater No 02/05/24 14:42 than 60 minutes Number of Risk Factors 1 02/05/24 14:42 PONV Score Low Risk 02/05/24 14:42 Height & Weight Height & Weight: Anesthesia: Height & Weight Height 5 ft 10 in 01/03/24 14:25 Respiratory Assessment Respiratory Assessment - interpreter translator: Respiratory Tract Infection Hx - interpreter translator Hx Respiratory Tract Infection No 02/05/24 14:42 STOP Sleep Apnea STOP Sleep Apnea - interpreter translator: STOP Sleep Apnea - interpreter translator Hx Hypertension Yes 02/05/24 14:42 Hx Sleep Apnea Yes 02/05/24 14:42 CPAP Yes 02/05/24 14:42 BIPAP No 02/05/24 14:42 Do you snore loudly (louder than talking or can be heard Do you often feel tired/ fatigued/ sleepy during daytime? Has anyone observed you stop breathing during sleep? STOP Results Positive 02/05/24 14:42 QUESTION #5 FULL TEXT : Do you snore loudly (louder than talking or can be heard through closed doors)? Tobacco Use History Tobacco Use History - interpreter translator: Tobacco Use History - interpreter translator Tobacco Use Smoking Status Former smoker 02/05/24 14:42 Hx Tobacco Use No 02/05/24 14:42 Years Smoking Packs Smoked per Day Smoking Cessation Date was No - quit smoking greater 02/05/24 14:42 within the last 15 years than 15 years ago Hx Smoking Cessation Date Hx Smoking Cessation Counseling Hematologic Medial History Hematologic Hx - interpreter translator: Hematologic Medical Hx - cvt rn Hx of Blood Transfusion No 02/05/24 14:42 Hx of Transfusion in last 3 No 02/05/24 14:42 Months Date of Last Transfusion (if within last 3 months) Ever experience any problems No 02/05/24 14:42 with transfusion(s)? Specify any problems Hx of Preganancy in last 3 N/A 02/05/24 14:42 Months Nurse Filling Out Transfusion VCHRISTIN 02/05/24 14:42 & Questions: Date: 02/05/24 02/05/24 14:42 Time: 14:43 02/05/24 14:42 Patient unable to answer at this time (ie. confused, unrespo /Reproduction History /Reproductive History - interpreter translator: /Reproductive Hx- interpreter translator Hx Now Gestational Age (in weeks): EDC: Hx Hx Para Hx Section SAB PFSH Medical History (Updated 02/05/24 @ 14:41 by Carissa Acevedo) Loss of hearing Wears glasses Alcohol use Arthritis High cholesterol Gastric reflux Former smoker CPAP (continuous positive airway pressure) dependence Leg cramps History of stress test History of echocardiogram Cardiology follow-up encounter Barretts esophagus Old inferolateral myocardial infarction Essential (primary) hypertension Old myocardial infarction Hyperlipidemia Atherosclerotic heart disease of [place] coronary artery without angina pectoris Screening for intestinal cancer Anxiety Depression Sleep apnea Osteoarthritis GERD (gastroesophageal reflux disease) Home Medications ?Medication ?Instructions ?Recorded ?Last Taken ?Type aspirin 81 mg tablet,delayed 81 mg PO DAILY@0800 06/29/17 11/21/17 History release cholecalciferol (vitamin D3) 50 1,000 unit PO DAILY 06/29/17 Unknown History mcg (2,000 unit) capsule clopidogrel 75 mg tablet 75 mg PO DAILY 06/29/17 02/01/24 History fish oil-dha-epa 1,200 mg-144 1 ea PO DAILY 06/29/17 Unknown History mg-216 mg capsule cyanocobalamin (vitamin B-12) 500 1,000 mcg PO DAILY@0800 01/14/20 Unknown History mcg tablet fluticasone propionate 50 1 spray intranasal DAILY 01/14/20 Unknown History mcg/actuation nasal spray,suspension oxybutynin chloride 10 mg 10 mg PO DAILY 01/14/20 Unknown History tablet,extended release 24 hr metoprolol succinate 25 mg 25 mg PO DAILY #90 tabs 01/02/21 Unknown Rx tablet,extended release 24 hr ramipril 2.5 mg capsule 2.5 mg PO DAILY #90 caps 01/09/21 Unknown Rx Lactobacillus acidophilus 2 2,000 mmu cells PO DAILY 01/11/21 Unknown History billion cell tablet gemfibrozil 600 mg tablet 600 mg PO DAILY #90 tabs 12/25/21 Unknown Rx esomeprazole magnesium 40 mg 40 mg PO QDAY 01/03/24 Unknown History capsule,delayed release (Nexium) sertraline 50 mg tablet (Zoloft) 50 mg PO QDAY 01/03/24 Unknown History alprazolam 0.25 mg tablet 0.25 mg PO TID PRN PRN anxiety 02/05/24 Unknown History Allergy/AdvReac Type Severity Reaction Status Date / Time clarithromycin (From Biaxin) Allergy Unknown Verified 02/05/24 14:26 atorvastatin (From Lipitor) AdvReac Severe myalgias Verified 02/05/24 14:26 pravastatin AdvReac Severe Myalgias Verified 02/05/24 14:26 rosuvastatin (From Crestor) AdvReac Severe myalgias Verified 02/05/24 14:26 simvastatin AdvReac Severe myalgias Verified 02/05/24 14:26 moxifloxacin (From Avelox) AdvReac Unknown Unknown Verified 02/05/24 14:26 Family History Mother CAD (coronary artery disease) Diabetes Brother Cancer esophageal Surgical History (Updated 02/05/24 @ 14:41 by Carissa Acevedo) History of esophagogastroduodenoscopy (EGD) History of left heart catheterization (07/16/06) History of coronary artery stent placement (11/27/05) S/P tonsillectomy S/P colonoscopy S/P appendectomy Social History Smoking Status: Former smoker alcohol intake: current details: occasional substance use type: does not use Audit: Pertinent Findings Pertinent Findings EKG Perinent findings: nsr, lvh ow nl 07/24/19 Stress test pertinent findings: 10/2017 ef 56, neg Heart catheterization pertinent findings: 2018 CADS LAD, prev LAD stents patent. Med tx only Recommendation Anesthesia Recommendation Anesthesia recommendation: OPTIMIZED for anesthesia
[2024-02-07] VITALS (8 sets, daily range): BP systolic 104–133; BP diastolic 65–86; PULSE 58–73; RESP 14–18; TEMP 36.6–37.1; O2SAT 91–98; BMI 35.1
[2024-02-07] MEDS: 0.9% Normal Saline (1000mL) 1,000 ML 15 ML IV (10:15)
--- NOTE | 2024-02-07 10:22 | PRE.ANES_ITS ---
ASA Classification* ASA Classification ASA Classification: 3 Assessment & Plan Anesthesia* Anesthesia Assessment Anesthesia Assessment: Discussed sedation and/or anesthesia options, risks, benefits, and alternatives with patient/parents/legal guardian/POA. Questions invited. The patient/parents/legal guardian/POA seems to understand and agrees to proceed with anesthesia plan. Reviewed the physical assessment, medical history, allergy history and patient home medications list prior to surgery/procedure/anesthetic and documented any changes. Performed airway and anesthesia risk assessments. Anesthesia Type Anesthesia Type: General Anesthesia Focused Assessment* Temperature: 98.3 F Pulse Rate: 61 Blood Pressure: 133/86 Respiratory Rate: 18 Pulse Ox: 98 Airway Assessment Mouth opens: >3 cm Mallampati Score: II Focused Labs Anesthesia Preop lab: CBC WBC 4.3 K/mm3 (4.4-11.0) L 07/12/22 09:34 RBC 4.96 M/mm3 (4.6-6.2) 07/12/22 09:34 Hgb 14.4 g/dL (13.0-16.5) 07/12/22 09:34 Hct 44.0 % (40-54) 07/12/22 09:34 Plt Count 228 K/mm3 (150-450) 07/12/22 09:34 CHEMISTRY Potassium 4.2 mmol/L (3.5-5.1) 07/12/22 09:34 Sodium 137 mmol/L (136-145) 07/12/22 09:34 BUN 29 mg/dL (7-18) H 07/12/22 09:34 Creatinine 1.15 mg/dL (0.70-1.30) 07/12/22 09:34 Glucose 150 mg/dL (74-106) H 07/12/22 09:34 TSH 2.92 uIU/mL (0.358-3.74) 09/04/16 16:54 COAG PT 12.3 SECONDS (11.7-14.9) 11/14/17 14:51 Pre-Assessment Diagnosis/Proposed Procedure Planned Operative Procedure(s): COLONOSCOPY/EGD Anesthesia History 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 When Was Last Pacemaker Check QUESTION #4 FULL TEXT: You/Your Family Experience fever (hyperthermia) with Anesthesia Last Oral Intake Last Oral intake: Last Oral Intake NPO since 18:30 02/07/24 09:58 Meds taken in AM with sips of Yes 02/07/24 09:58 water? Meds patient instructed to metoprolol, ramipril 02/07/24 09:58 take am of surgery aspirin taken yesterday PONV PONV - instrumental musician: PONV - instrumental musician Female No 02/05/24 14:42 HX of Motion Sickness No 02/05/24 14:42 HX of N/V After Surgery No 02/05/24 14:42 Non-Smoker Yes 02/05/24 14:42 Duration of Surgery greater No 02/05/24 14:42 than 60 minutes Number of Risk Factors 1 02/05/24 14:42 PONV Score Low Risk 02/05/24 14:42 Height & Weight Height & Weight: Anesthesia: Height & Weight Height 5 ft 10 in 02/07/24 09:58 Weight: 111 kg 02/07/24 09:58 Body Mass Index (BMI) 35.1 02/07/24 09:58 Respiratory Assessment Respiratory Assessment - instrumental musician: Respiratory Tract Infection Hx - instrumental musician Hx Respiratory Tract Infection No 02/05/24 14:42 STOP Sleep Apnea STOP Sleep Apnea - instrumental musician: STOP Sleep Apnea - instrumental musician Hx Hypertension Yes 02/05/24 14:42 Hx Sleep Apnea Yes 02/05/24 14:42 CPAP Yes 02/05/24 14:42 BIPAP No 02/05/24 14:42 Do you snore loudly (louder than talking or can be heard Do you often feel tired/ fatigued/ sleepy during daytime? Has anyone observed you stop breathing during sleep? STOP Results Positive 02/05/24 14:42 QUESTION #5 FULL TEXT : Do you snore loudly (louder than talking or can be heard through closed doors)? Tobacco Use History Tobacco Use History - instrumental musician: Tobacco Use History - instrumental musician Tobacco Use Smoking Status Former smoker 02/05/24 14:42 Hx Tobacco Use No 02/05/24 14:42 Years Smoking Packs Smoked per Day Smoking Cessation Date was No - quit smoking greater 02/05/24 14:42 within the last 15 years than 15 years ago Hx Smoking Cessation Date Hx Smoking Cessation Counseling Hematologic Medial History Hematologic Hx - instrumental musician: Hematologic Medical Hx - certified nurse midwife Hx of Blood Transfusion No 02/05/24 14:42 Hx of Transfusion in last 3 No 02/05/24 14:42 Months Date of Last Transfusion (if within last 3 months) Ever experience any problems No 02/05/24 14:42 with transfusion(s)? Specify any problems Hx of Preganancy in last 3 N/A 02/05/24 14:42 Months Nurse Filling Out Transfusion VCHRISTIN 02/05/24 14:42 & Questions: Date: 02/05/24 02/05/24 14:42 Time: 14:43 02/05/24 14:42 Patient unable to answer at this time (ie. confused, unrespo /Reproduction History /Reproductive History - instrumental musician: /Reproductive Hx- instrumental musician Hx Now Gestational Age (in weeks): EDC: Hx Hx Para Hx Section SAB Active Medications Active Medications: Current Medications Generic Name Dose Route Start Last Admin Trade Name Freq PRN Reason Stop Dose Admin Sodium Chloride 1,000 mls @ 15 mls/hr 02/07/24 10:15 02/07/24 10:15 IV 02/10/24 04:54 15 mls/hr .Q48H ORA Administration Protocol PFSH Medical History Loss of hearing Wears glasses Alcohol use Arthritis High cholesterol Gastric reflux Former smoker CPAP (continuous positive airway pressure) dependence Leg cramps History of stress test History of echocardiogram Cardiology follow-up encounter Barretts esophagus Old inferolateral myocardial infarction Essential (primary) hypertension Old myocardial infarction Hyperlipidemia Atherosclerotic heart disease of [place] coronary artery without angina pectoris Screening for intestinal cancer Anxiety Depression Sleep apnea Osteoarthritis GERD (gastroesophageal reflux disease) Home Medications ?Medication ?Instructions ?Recorded ?Last Taken ?Type aspirin 81 mg tablet,delayed 81 mg PO DAILY@0800 06/29/17 02/06/24 History release cholecalciferol (vitamin D3) 50 1,000 unit PO DAILY 06/29/17 Unknown History mcg (2,000 unit) capsule clopidogrel 75 mg tablet 75 mg PO DAILY 06/29/17 02/01/24 History fish oil-dha-epa 1,200 mg-144 1 ea PO DAILY 06/29/17 02/06/24 History mg-216 mg capsule cyanocobalamin (vitamin B-12) 500 1,000 mcg PO DAILY@0800 01/14/20 Unknown History mcg tablet fluticasone propionate 50 1 spray intranasal DAILY 01/14/20 Unknown History mcg/actuation nasal spray,suspension oxybutynin chloride 10 mg 10 mg PO DAILY 01/14/20 Unknown History tablet,extended release 24 hr metoprolol succinate 25 mg 25 mg PO DAILY #90 tabs 01/02/21 02/07/24 Rx tablet,extended release 24 hr ramipril 2.5 mg capsule 2.5 mg PO DAILY #90 caps 01/09/21 02/07/24 Rx Lactobacillus acidophilus 2 2,000 mmu cells PO DAILY 01/11/21 Unknown History billion cell tablet gemfibrozil 600 mg tablet 600 mg PO DAILY #90 tabs 12/25/21 Unknown Rx esomeprazole magnesium 40 mg 40 mg PO QDAY 01/03/24 Unknown History capsule,delayed release (Nexium) sertraline 50 mg tablet (Zoloft) 50 mg PO QDAY 01/03/24 Unknown History alprazolam 0.25 mg tablet 0.25 mg PO TID PRN PRN anxiety 02/05/24 Unknown History Allergy/AdvReac Type Severity Reaction Status Date / Time clarithromycin (From Biaxin) Allergy Unknown Verified 02/07/24 09:56 atorvastatin (From Lipitor) AdvReac Severe myalgias Verified 02/07/24 09:56 pravastatin AdvReac Severe Myalgias Verified 02/07/24 09:56 rosuvastatin (From Crestor) AdvReac Severe myalgias Verified 02/07/24 09:56 simvastatin AdvReac Severe myalgias Verified 02/07/24 09:56 moxifloxacin (From Avelox) AdvReac Unknown Unknown Verified 02/07/24 09:56 Family History Mother CAD (coronary artery disease) Diabetes Brother Cancer esophageal Surgical History History of esophagogastroduodenoscopy (EGD) History of left heart catheterization (07/16/06) History of coronary artery stent placement (11/27/05) S/P tonsillectomy S/P colonoscopy S/P appendectomy Social History Smoking Status: Former smoker alcohol intake: current details: occasional substance use type: does not use Review of Systems (Anesthesia) ROS Narrative System reviewed and no additional complaints, except as documented.
--- NOTE | 2024-02-07 10:30 | EGD_PTH ---
PATIENT: TALYA SANZ LOC: [facility] U#:[id number] AGE/SX: 63/M ROOM: RE02/07/[address]: Dr. Les Mayes MD : 1960 BED: DIS: 02/07/2024 SPEC #: [id number] RECD: 02/07/24 13:08 STATUS: JESSICA AMANDA #: [id number] MANUEL: 02/07/24 10:[address]: Les Mayes DEPT: SURGICAL PATHOLOGY RECD BY: Keke Rivas ENTERED: 02/07/24 13:28 SP TYPE: EGD BIOPSY OT DR: Maria Del Carmen Pinto, MANGO Tissues: A - Duodenum, NOS B - Gastric mucous membrane C - Gastric mucous membrane D - Esophagus, NOS E - Sigmoid colon biopsy Procedures: Special Stain Group I Surgery Specimen Level IV Alcian Blue/PAS (control) HEADER OPERATION: Colonoscopy with biopsies, EGD PRE-OP DIAGNOSIS: Encounter for colonoscopy due to history of colonic polyp, Arreola's esophagus TISSUE SUBMITTED: A- Duodenal biopsy, B- Antrum biopsy, C- Gastric polyp biopsy, D- Gastroesophageal junction biopsy, E- Sigmoid polyp biopsy x2 MICROSCOPIC DIAGNOSIS A. Duodenum, biopsy: Fragments of duodenal mucosa with extensive gastric metaplasia and chronic inflammation. B. Antrum, biopsy: Mild gastritis. See microscopic description and comment. C. Gastric polyp, biopsy: Fundic gland polyp. D. Gastroesophageal junction, biopsy: Fragments of gastroesophageal mucosa with focal intestinal metaplasia (goblet cell metaplasia) consistent with Arreola's esophagus. Chronic inflammation. Negative for dysplasia. See comment. E. Sigmoid polyp x2, biopsy: Fragments of hyperplastic polyp. . 02/10/2024 COMMENT B. The results of immunohistochemistry for Helicobacter pylori will be reported separately ([id number]). D. Alcian blue/PAS stain with matched control is used in the evaluation of the specimen. Immunohistochemistry ([id number]) for P53 and Ki-67 will be performed and results will be reported separately. MICROSCOPIC DESCRIPTION Slides are reviewed. B. The specimen shows fragments of gastric mucosa with chronic inflammatory cell infiltrates in the lamina propria consisting of lymphocytes and plasma cells, consistent with mild chronic gastritis. GROSS DESCRIPTION A. Received in fixative is one container labeled with the patient's name and designated Duodenal biopsy. The specimen consists of three irregular fragments of deleon soft tissue that in aggregate measure 4.0mm together and submitted in one cassette. B. Received in fixative is one container labeled with the patient's name and designated Antrum biopsy. The specimen consists of two irregular fragments of deleon soft tissue that in aggregate measure to at most 3.0mm together and totally submitted in one cassette. C. Received in fixative is one container labeled with the patient's name and designated Gastric polyp biopsy. The specimen consists of a solitary 4.0 x 2.0 x 1.0cm deleon tissue fragment submitted in one cassette. D. Received in fixative is one container labeled with the patient's name and designated GE junction biopsy. The specimen consists of three irregular fragments of deleon soft tissue that in aggregating to at most 4.0mm together and submitted in one cassette. E. Received in fixative is one container labeled with the patient's name and designated Sigmoid polyp biopsy x2. The specimen consists of three irregular fragments of deleon soft tissue and possible other flex. The specimen aggregates to at most 3.0mm and the entire specimen is submitted together in one cassette. 02/07/2024 TC:3 CPT:73601a3,97110
--- NOTE | 2024-02-07 10:30 | IMM_PTH ---
PATIENT: TALYA SANZ LOC: [facility] U#:[id number] AGE/SX: 63/M ROOM: RE02/07/[address]: Dr. Les Mayes MD : 1960 BED: DIS: 02/07/2024 SPEC #: [id number] RECD: 02/07/24 14:23 STATUS: JESSICA REQ #: [id number] MANUEL: 02/07/24 10:[address]: Les Mayes DEPT: IMMUNOHISTOCHEMISTRY RECD BY: Collins Gannon ENTERED: 02/07/24 14:23 SP TYPE: IMMUNO OTHR DR: Maria Del Carmen Pinto, HEAD OF MARKETING-C Tissues: B - Gastric mucous membrane D - Esophagus, NOS Procedures: H Pylori (initial) P53 (initial) KI-67 (add) PHYSICIAN & INSTITUTION [place] [id number] SPECIMEN INFORMATION: Tissue Source: B- Antrum biopsy, D- Gastroesophageal junction biopsy Clinical Info: Encounter for colonoscopy due to history of colonic polyp, Arreola's esophagus Specimen Number: [id number] CPT code: 29378s1,08563 METHODOLOGY: Deparaffinized sections of prefer/formalin-fixed tissue or PAP/DQ stained slides are incubated with monoclonal/polyclonal antibodies/oligonucleotide probes. Localization is made via biotin free immunoperoxidase method. Appropriate controls are performed and reacted as expected. Results on target cell population are indicated in the following table: RESULTS: ANTIBODY / CLONE RESULT Block B H Pylori (polyclonal) negative Block D P53 (DO-7) negative, null pattern Ki-67 (30-9) positive, low These tests were developed and their performance characteristics determined by [facility]. They may not have been cleared or approved by the U.S. Food and Drug Administration. The FDA has determined that such clearance or approval is not necessary. The above immunohistochemical/dualISH markers are ordered and reviewed by the Pathologist. INTERPRETATION: B. Gastric antrum, biopsy: Negative for Helicobacter pylori organisms. D. Gastroesophageal junction, biopsy: Negative for dysplasia SJ:anastasiya 02/11/2024
--- NOTE | 2024-02-07 11:11 | PCM.HP.STD ---
HPI - General General Date of Admission: 02/07/24 Date of Service: 02/07/24 Chief Complaint: EGD and colonoscopy HPI Narrative TALYA SANZ, is a 63 M who presents for elective EGD and colonoscopy. Patient has a history of Arreola's esophagus in the past. He has had some constipation as well. Have recommended EGD and colonoscopy. [facility] Medical History Loss of hearing Wears glasses Alcohol use Arthritis High cholesterol Gastric reflux Former smoker CPAP (continuous positive airway pressure) dependence Leg cramps History of stress test History of echocardiogram Cardiology follow-up encounter Barretts esophagus Old inferolateral myocardial infarction Essential (primary) hypertension Old myocardial infarction Hyperlipidemia Atherosclerotic heart disease of [place] coronary artery without angina pectoris Screening for intestinal cancer Anxiety Depression Sleep apnea Osteoarthritis GERD (gastroesophageal reflux disease) Home Medications ?Medication ?Instructions ?Recorded ?Last Taken ?Type aspirin 81 mg tablet,delayed 81 mg PO DAILY@0800 06/29/17 02/06/24 History release cholecalciferol (vitamin D3) 50 1,000 unit PO DAILY 06/29/17 Unknown History mcg (2,000 unit) capsule clopidogrel 75 mg tablet 75 mg PO DAILY 06/29/17 02/01/24 History fish oil-dha-epa 1,200 mg-144 1 ea PO DAILY 06/29/17 02/06/24 History mg-216 mg capsule cyanocobalamin (vitamin B-12) 500 1,000 mcg PO DAILY@0800 01/14/20 Unknown History mcg tablet fluticasone propionate 50 1 spray intranasal DAILY 01/14/20 Unknown History mcg/actuation nasal spray,suspension oxybutynin chloride 10 mg 10 mg PO DAILY 01/14/20 Unknown History tablet,extended release 24 hr metoprolol succinate 25 mg 25 mg PO DAILY #90 tabs 01/02/21 02/07/24 Rx tablet,extended release 24 hr ramipril 2.5 mg capsule 2.5 mg PO DAILY #90 caps 01/09/21 02/07/24 Rx Lactobacillus acidophilus 2 2,000 mmu cells PO DAILY 01/11/21 Unknown History billion cell tablet gemfibrozil 600 mg tablet 600 mg PO DAILY #90 tabs 12/25/21 Unknown Rx esomeprazole magnesium 40 mg 40 mg PO QDAY 01/03/24 Unknown History capsule,delayed release (Nexium) sertraline 50 mg tablet (Zoloft) 50 mg PO QDAY 01/03/24 Unknown History alprazolam 0.25 mg tablet 0.25 mg PO TID PRN PRN anxiety 02/05/24 Unknown History Allergy/AdvReac Type Severity Reaction Status Date / Time clarithromycin (From Biaxin) Allergy Unknown Verified 02/07/24 09:56 atorvastatin (From Lipitor) AdvReac Severe myalgias Verified 02/07/24 09:56 pravastatin AdvReac Severe Myalgias Verified 02/07/24 09:56 rosuvastatin (From Crestor) AdvReac Severe myalgias Verified 02/07/24 09:56 simvastatin AdvReac Severe myalgias Verified 02/07/24 09:56 moxifloxacin (From Avelox) AdvReac Unknown Unknown Verified 02/07/24 09:56 Family History Mother CAD (coronary artery disease) Diabetes Brother Cancer esophageal Surgical History History of esophagogastroduodenoscopy (EGD) History of left heart catheterization (07/16/06) History of coronary artery stent placement (11/27/05) S/P tonsillectomy S/P colonoscopy S/P appendectomy Social History Smoking Status: Former smoker alcohol intake: current details: occasional substance use type: does not use Vital Signs Vital Signs Vital Signs: 02/07/24 09:58 02/07/24 09:58 02/07/24 10:22 Temperature 98.3 F 98.3 F Temperature Source Temporal Pulse Rate 61 61 Respiratory Rate 18 18 Respiratory Pattern Normal Blood Pressure 133/86 H 133/86 H Blood Pressure Mean 101 Blood Pressure Source Monitor Blood Pressure Position Semi-Fowlers Blood Pressure Location Left Arm Pulse Ox 98 98 Oxygen Delivery Method Room Air Weight Weight: 244 lb 11.41 oz Body Mass Index (BMI) 35.1 Physical Exam Narrative He is alert and oriented x 3. He is in no acute distress. Abdomen is soft nontender nondistended. Assessment & Plan Assessment/Plan (1) Encounter for colonoscopy due to history of colonic polyp: PLAN: The patient is a 63-year-old male with a history of Arreola's esophagus. I have recommended EGD and colonoscopy. His last procedure was in 2018. We reviewed the risks and benefits of the procedure. He wishes to proceed. The procedure will begin momentarily. (2) Barretts esophagus: Charges/Coding Visit Charges Inpatient E&M: 82980 Init Hosp L1
--- NOTE | 2024-02-07 12:31 | PCM.POST.ANE ---
Anesthesia: Postop Eval I Current Vital Signs Temperature: 98 F Pulse Rate: 62 Blood Pressure: 111/78 Respiratory Rate: 18 Pulse Ox: 91 Oxygen Delivery Method: Nasal Cannula Oxygen Flow Rate (L/min): 3 Assessment Airway patent: Yes Spontaneous unlabored respirations: Yes Mental status: Asleep nausea: No Vomiting: No Anesthesia Complication: No Fluid Hydration Crystalloid volume administer (ml): 600 Total IV fluid infused: 600 Progress Note Anesthesia document: Postop Eval 1 completed: Yes
--- NOTE | 2024-02-07 12:40 | OP.EGD_ITS ---
Patient Name: Yousif Ayala Procedure Date: 02/07/2024 11:21 AM Date of : 1960 Age: 63 Procedure: Upper GI endoscopy Indications: Follow-up of Arreola's esophagus Providers: Les Mayes MD Referring MD: Ramirez Szymanski Medicines: Propofol per Anesthesia Patient Profile: Refer to note in patient chart for documentation of history and physical. Complications: No immediate complications. Estimated blood loss: Minimal. Procedure: Pre-Anesthesia Assessment: - Prior to the procedure, a History and Physical was performed, and patient medications and allergies were reviewed. The patient's tolerance of previous anesthesia was also reviewed. The risks and benefits of the procedure and the sedation options and risks were discussed with the patient. All questions were answered, and informed consent was obtained. Prior Anticoagulants: The patient has taken no anticoagulant or antiplatelet agents. ASA Grade Assessment: II - A patient with mild systemic disease. After reviewing the risks and benefits, the patient was deemed in satisfactory condition to undergo the procedure. After obtaining informed consent, the endoscope was passed under direct vision. Throughout the procedure, the patient's blood pressure, pulse, and oxygen saturations were monitored continuously. The Endoscope was introduced through the mouth, and advanced to the duodenal bulb. The upper GI endoscopy was accomplished without difficulty. The patient tolerated the procedure well. Moderate Sedation: See the other procedure note for documentation of moderate sedation with intraservice time. Scope In: 11:36:10 AM Scope Out: 11:47:37 AM Total Procedure Duration Time 0 hours 11 minutes 27 seconds Findings: The examined esophagus was normal. Mucosa was biopsied with a cold forceps for histology randomly at the gastroesophageal junction. Verification of patient identification for the specimen was done by the nurse using the patient's name, date and medical record number. Estimated blood loss was minimal. Multiple 5 mm pedunculated polyps with no bleeding and no stigmata of recent bleeding were found in the entire examined stomach. The polyp was removed with a cold biopsy forceps. Resection was complete, and retrieval was complete. Verification of patient identification for the specimen was done by the nurse using the patient's name, date and medical record number. Estimated blood loss was minimal. Multiple 4 mm sessile polyps with no bleeding were found in the duodenal bulb. The polyp was removed with a cold biopsy forceps. Resection and retrieval were complete. Verification of patient identification for the specimen was done by the nurse using the patient's name, date and medical record number. Estimated blood loss was minimal. The exam was otherwise without abnormality. Impression: - Normal esophagus. Biopsied. - Multiple gastric polyps. Resected and retrieved. - Multiple duodenal polyps. Resected and retrieved. - The examination was otherwise normal. Recommendation: - Discharge patient to home (ambulatory). - High fiber diet indefinitely. - Continue present medications. - Await pathology results. - Repeat upper endoscopy in 3 years for surveillance. Procedure Code(s): --- Professional --- 49144, Esophagogastroduodenoscopy, flexible, transoral; with biopsy, single or multiple Diagnosis Code(s): --- Professional --- K31.7, Polyp of stomach and duodenum K22.70, Arreola's esophagus without dysplasia CPT copyright 2021 [employer]. All rights reserved. The codes documented in this report are preliminary and upon acidizer water well review may be revised to meet current compliance requirements. Les Mayes MD 02/07/2024 12:39:59 PM This report has been signed electronically. Number of Addenda: 0 Note Initiated On: 02/07/2024 11:21 AM
--- NOTE | 2024-02-07 12:40 | OP.CCLET_ITS ---
02/07/2024 Ramirez Szymanski Re : Upper GI endoscopy procedure for Yousif Angelesr Blair This procedure was performed on Wednesday, February 07, 2024. My impressions and recommendations are as follows: Impressions : - Normal esophagus. Biopsied. - Multiple gastric polyps. Resected and retrieved. - Multiple duodenal polyps. Resected and retrieved. - The examination was otherwise normal. Recommendations : - Discharge patient to home (ambulatory). - High fiber diet indefinitely. - Continue present medications. - Await pathology results. - Repeat upper endoscopy in 3 years for surveillance. My findings are described in the full procedure note, which is enclosed. If I can be of further assistance, please feel free to contact me at . Sincerely, Les Mayes MD 02/07/2024 12:39:59 PM This report has been signed electronically.
--- NOTE | 2024-02-07 12:45 | OP.COLON_ITS ---
Patient Name: Yousif Ayala Procedure Date: 02/07/2024 11:47 AM Date of : 1960 Age: 63 Procedure: Colonoscopy Indications: Screening for colorectal malignant neoplasm Providers: Les Mayes MD Referring MD: Ramirez Szymanski Medicines: Monitored Anesthesia Care Patient Profile: Refer to note in patient chart for documentation of history and physical. Last Colonoscopy: 2017. Complications: No immediate complications. Estimated blood loss: Minimal. Procedure: Pre-Anesthesia Assessment: - Prior to the procedure, a History and Physical was performed, and patient medications and allergies were reviewed. The patient's tolerance of previous anesthesia was also reviewed. The risks and benefits of the procedure and the sedation options and risks were discussed with the patient. All questions were answered, and informed consent was obtained. Prior Anticoagulants: The patient has taken no anticoagulant or antiplatelet agents. ASA Grade Assessment: II - A patient with mild systemic disease. After reviewing the risks and benefits, the patient was deemed in satisfactory condition to undergo the procedure. - Prior to the procedure, a History and Physical was performed, and patient medications and allergies were reviewed. The patient's tolerance of previous anesthesia was also reviewed. The risks and benefits of the procedure and the sedation options and risks were discussed with the patient. All questions were answered, and informed consent was obtained. Prior Anticoagulants: The patient has taken no anticoagulant or antiplatelet agents. ASA Grade Assessment: II - A patient with mild systemic disease. After reviewing the risks and benefits, the patient was deemed in satisfactory condition to undergo the procedure. After I obtained informed consent, the scope was passed under direct vision. Throughout the procedure, the patient's blood pressure, pulse, and oxygen saturations were monitored continuously. The adult colonoscope was introduced through the anus and advanced to the cecum, identified by appendiceal orifice and ileocecal valve. Moderate Sedation: See the other procedure note for documentation of moderate sedation with intraservice time. Scope In: 11:52:32 AM Scope Withdrawal Time 0 hours 8 minutes 55 seconds Scope Out: 12:13:31 PM Total Procedure Duration Time 0 hours 20 minutes 59 seconds Findings: The perianal and digital rectal examinations were normal. Non-bleeding external and internal hemorrhoids were found during retroflexion. The hemorrhoids were moderate. The exam was otherwise without abnormality on direct and retroflexion views. A 3 mm polyp was found in the sigmoid colon. The polyp was sessile. The polyp was removed with a cold biopsy forceps. Resection and retrieval were complete. Verification of patient identification for the specimen was done by the nurse using the patient's name, date and medical record number. Estimated blood loss was minimal. Impression: - Non-bleeding external and internal hemorrhoids. Recommendation: - Discharge patient to home (ambulatory). - High fiber diet. - Await pathology results. - Repeat colonoscopy in 5-10 years for surveillance based on pathology results. - Continue present medications. Procedure Code(s): --- Professional --- 96054, Colonoscopy, flexible; with biopsy, single or multiple Diagnosis Code(s): --- Professional --- Z12.11, Encounter for screening for malignant neoplasm of colon K64.8, Other hemorrhoids CPT copyright 2021 [employer]. All rights reserved. The codes documented in this report are preliminary and upon tinsmith helper review may be revised to meet current compliance requirements. Les Mayes MD 02/07/2024 12:45:14 PM This report has been signed electronically. Number of Addenda: 0 Note Initiated On: 02/07/2024 11:47 AM
--- NOTE | 2024-02-07 12:45 | OP.CCLET_ITS ---
02/07/2024 Ramirez Szymanski Re : Colonoscopy procedure for Yousif Ayala [place] This procedure was performed on Wednesday, February 07, 2024. My impressions and recommendations are as follows: Impressions : - Non-bleeding external and internal hemorrhoids. Recommendations : - Discharge patient to home (ambulatory). - High fiber diet. - Await pathology results. - Repeat colonoscopy in 5-10 years for surveillance based on pathology results. - Continue present medications. My findings are described in the full procedure note, which is enclosed. If I can be of further assistance, please feel free to contact me at . Sincerely, Les Mayes MD 02/07/2024 12:45:14 PM This report has been signed electronically.
--- NOTE | 2024-02-07 13:25 | PCM.POSTANE2 ---
Anesthesia Postop Eval I Sum Postop Eval Completion status Anesthesia document: Postop Eval 1 completed: Yes Anesthesia Postop Eval I Summary Anesthesia Postop Eval I Summary: Anesthesia Postop Eval I: Assessment Summary Airway patent Yes 02/07/24 12:31 [email or web address] Spontaneous unlabored Yes 02/07/24 12:31 [email or web address] respirations Mental status Asleep 02/07/24 12:31 [email or web address] nausea No 02/07/24 12:31 [email or web address] Vomiting No 02/07/24 12:31 [email or web address] Anesthesia Postop Eval I: Fluid Summary Crystalloid volume administer 600 02/07/24 12:31 [email or web address] (ml) Colloids volume administered ( ml) Blood Product volume administered (ml) Total IV fluid infused 600 02/07/24 12:31 [email or web address] Anesthesia Postop Eval I: Summary Notes Anesthesia Complication No 02/07/24 12:31 [email or web address] Anesthesia Complication Comment: Post-operative progress note Anesthesia: Postop Eval II Evaluation Mental status: Awake Pain Level: 0 nausea: No Vomiting: No
== END 2024-02-07 13:20 | disposition home or self-care (01) ==
LOC: EN 09:23 → AC 09:25
PROVIDERS: PCP Nurse Practitioner Family; Referring Provider Nurse Practitioner Family; Visit Provider Surgery
PROC: 0DJD8ZZ Inspection of Lower Intestinal Tract, Via Natural or Artificial Opening Endoscopic (ICD-10-PCS; CPT 45378; principal; 2024-02-07 10:25)
DX: Z12.11 Encounter for screening for malignant neoplasm of colon (principal); K31.7 Polyp of stomach and duodenum; K64.4 Residual hemorrhoidal skin tags; K64.8 Other hemorrhoids; K63.5 Polyp of colon; K22.70 Barrett's esophagus without dysplasia; K29.70 Gastritis, unspecified, without bleeding; K59.00 Constipation, unspecified; I10 Essential (primary) hypertension; I25.2 Old myocardial infarction; I25.10 Atherosclerotic heart disease of native coronary artery without angina pectoris; K21.9 Gastro-esophageal reflux disease without esophagitis; F41.9 Anxiety disorder, unspecified; F32.A Depression, unspecified; E78.00 Pure hypercholesterolemia, unspecified; G47.30 Sleep apnea, unspecified; M19.90 Unspecified osteoarthritis, unspecified site; Z95.5 Presence of coronary angioplasty implant and graft; Z79.82 Long term (current) use of aspirin; Z79.02 Long term (current) use of antithrombotics/antiplatelets; Z79.899 Other long term (current) drug therapy; Z86.0100 Personal history of colon polyps, unspecified; Z87.891 Personal history of nicotine dependence
CPT/HCPCS: 45380; 43239; 88305; 88312; 88341; 88342; A4216; J2405

== ENCOUNTER → 2024-05-26 | Outpatient (CLI) | payer MEDICARE, OTHER, SELFPAY ==
[2024-05-26 13:05] LABS: AST(SGOT) 41 U/L (<=37); Alanine Aminotransfer ALT/SGPT 36 U/L (<=46); Albumin, Serum 4.5 g/dL (3.4-4.8); Alkaline Phosphatase 86 U/L (40-129); Bilirubin, Direct 0.18 mg/dL (0.00-0.30); Cholesterol 198 mg/dL (<=200); Globulin 2.7 g/dL (2.2-4.2); High Density Lipoprotein 28 mg/dL; Low Density Lipoprotein Calc. 84 mg/dL; Protein, Total 7.2 g/dL (5.9-8.4); Total Bilirubin 0.43 mg/dL (0.00-1.30); Triglycerides 429 mg/dL; Very Low Density Lipoprotein 86 mg/dL (5-40)
== END | disposition home or self-care (01) ==
LOC: MTLAB 08:29
PROVIDERS: PCP Nurse Practitioner Family; Referring Provider Nurse Practitioner Family; Visit Provider Nurse Practitioner Family
DX: E78.00 Pure hypercholesterolemia, unspecified (principal)
CPT/HCPCS: 36415; 80061; 80076

== ENCOUNTER → 2024-06-05 | Outpatient (CLI) | payer MEDICARE, OTHER, SELFPAY ==
--- NOTE | 2024-06-05 13:42 | STRESSREP_ITS ---
Stress Test Report Pharmacologic myocardial perfusion stress test. 63-year-old man with a history of coronary artery disease Resting EKG demonstrates sinus bradycardia with a rate of 54 bpm. Resting blood pressure is 124/80 mmHg. 0.4 mg of regadenoson was infused per usual protocol followed by rapid intravenous saline flush injection. Continuous EKG monitoring was performed. The maximum heart rate was 79 bpm which was 50% of max impacted heart rate the maximum workload was 1 metabolic equivalent. At rest there were no ST or T wave changes noted to suggest ischemia and at peak infusion nonspecific ST changes were noted which did not meet the criteria for ischemia. No clinical angina is noted. The final blood pressure was 114/66 mmHg. Myocardial perfusion protocol. 14.9 mCi of technetium 99m sestamibi was injected at rest. 0.4 mg of regadenoson was infused per usual protocol. At peak infusion 45.0 mCi of technetium 99m sestamibi was injected stress images were obtained stress and rest images were reconstructed and compared in the short axis vertical long and horizontal long axis. Gated images were also obtained. Perfusion SPECT analysis: Review of the stress images demonstrate normal uptake of tracer noted in all areas of the myocardium. There is an area in the inferolateral wall of moderate size with a perfusion defect. The resting images similar demonstrated normal uptake of tracer noted in all areas of the myocardium. A persistent perfusion defect is noted in the inferolateral wall. The above is suggestive of a previ ous inferolateral infarct. No ischemia is noted. Gated SPECT analysis: The gated ejection fraction is 53%. Conclusion: Normal pharmacologic myocardial perfusion stress test. Preserved ejection fraction. Inferolateral perfusion defect present. The above is unchanged from prior.
== END | disposition home or self-care (01) ==
LOC: CVS 06:07
PROVIDERS: PCP Nurse Practitioner Family; Referring Provider Internal Medicine Cardiovascular Disease; Visit Provider Internal Medicine Cardiovascular Disease
DX: I25.10 Atherosclerotic heart disease of native coronary artery without angina pectoris (principal); Z95.5 Presence of coronary angioplasty implant and graft
CPT/HCPCS: 78452; 93017; A9500; A4216; J2785

== ENCOUNTER → 2024-06-26 | Outpatient (CLI) | payer MEDICARE, OTHER, SELFPAY ==
--- NOTE | 2024-06-26 14:09 | RAD_ITS ---
PROCEDURE: CHEST PA AND LATERAL 06/26/2024 REASON FOR EXAM: RULE OUT PNEUMONIA TECHNIQUE: Frontal and lateral views of the chest. COMPARISON: 04/17/2018 FINDINGS: The lungs appear clear. Pulmonary vascularity appears within limits. No pleural effusion. The cardiac and mediastinal contours appear within limits. Visualized osseous structures appear within limits. RAD/Chest PA and Lateral IMPRESSION: No evidence of acute disease. Reading Location: [id number]
[2024-06-26 17:51] LABS: Absolute Lymphocyte Count 2.09 X10^3/uL (0.83-4.51); Absolute Neutrophil Count 3.9 X10^3/uL (2.0-7.7); Basophil# 0.06 X10^3/uL; Basophil% 0.9 % (0-1); Eosinophil# 0.18 X10^3/uL; Eosinophils% 2.6 % (0-5); Hematocrit 40.1 % (40-54); Hemoglobin 13.9 g/dL (13.0-16.5); Lymphocyte # 2.09 X10^3/ul (0.83-4.51); Lymphocyte % 30.2 % (19-41); Mean Corp Hgb Conc 34.7 g/dL (32-36); Mean Corpuscular Hgb 28.8 pg (27.0-32.0); Mean Corpuscular Volume 83.2 fL (80-94); Mean Platelet Vol. 10.9 fl (6.2-12.0); Monocyte# 0.58 X10^3/uL; Monocyte% 8.4 % (0-10); NRBC Flagged by Analyzer 0 % (0-5); Neutrophil # 3.94 X10^3/uL (2.7-7.7); Platelet Count 282 K/mm3 (150-450); RBC Distribution Width CV 13.1 % (11.6-14.6); RBC Distribution Width SD 39.3 fl (35.1-43.9); Red Blood Count 4.82 M/mm3 (4.6-6.2); White Blood Count 6.9 K/mm3 (4.4-11.0)
[2024-06-26 18:04] LABS: ALB/GLOB Ratio 1.7 RATIO (0.9-2.4); AST(SGOT) 44 U/L (<=37); Alanine Aminotransfer ALT/SGPT 40 U/L (<=46); Albumin, Serum 4.6 g/dL (3.4-4.8); Alkaline Phosphatase 88 U/L (40-129); Anion Gap 14 (5-15); BUN 26 mg/dL (4-19); BUN/Creat Ratio 23.3 RATIO (10-20); Calcium,Total 9.7 mg/dL (7.6-11.0); Carbon Dioxide 23.5 mmol/L (21.0-32.0); Chloride 100 mmol/L (98-108); Creatinine, Serum 1.11 mg/dL (0.70-1.20); EST Glomerular Filtration Rate 74 (>60); Globulin 2.7 g/dL (2.2-4.2); Glucose 231 mg/dL (70-99); Protein, Total 7.3 g/dL (5.9-8.4); Sodium Level 137 mmol/L (133-145); Total Bilirubin 0.19 mg/dL (0.00-1.30)
== END | disposition home or self-care (01) ==
PROVIDERS: PCP Nurse Practitioner Family; Referring Provider Nurse Practitioner Family; Visit Provider Nurse Practitioner Family
DX: R07.9 Chest pain, unspecified (principal); I10 Essential (primary) hypertension
CPT/HCPCS: 36415; 71046; 80053; 85025

== ENCOUNTER → 2024-06-27 | Outpatient (CLI) | payer MEDICARE, OTHER, SELFPAY | END | disposition home or self-care (01) | LOC: LABSPEC 11:43 | PROVIDERS: PCP Nurse Practitioner Family; Referring Provider Nurse Practitioner Family; Visit Provider Nurse Practitioner Family | DX: R19.7 Diarrhea, unspecified (principal) | CPT/HCPCS: 83630; 87177; 87209; 87493 ==

== ENCOUNTER → 2024-06-30 | Outpatient (CLI) | payer MEDICARE, OTHER, SELFPAY | END | disposition home or self-care (01) | LOC: PSN 10:41 | PROVIDERS: PCP Nurse Practitioner Family; Referring Provider Nurse Practitioner Family; Visit Provider Nurse Practitioner Family | DX: R07.9 Chest pain, unspecified (principal) | CPT/HCPCS: 87633 ==

== ENCOUNTER → 2024-11-10 | Outpatient (CLI) | payer MEDICARE, OTHER, SELFPAY ==
[2024-11-10 16:14] LABS: PSA,Total- Diagnostic 0.81 ng/mL (0.00-4.00)
== END | disposition home or self-care (01) ==
LOC: LAB 14:21
PROVIDERS: PCP Nurse Practitioner Family; Referring Provider Urology; Visit Provider Urology
DX: N40.1 Benign prostatic hyperplasia with lower urinary tract symptoms (principal)
CPT/HCPCS: 36415; 84153